=== PATIENT | male | born 1975 | race Hispanic/Latino ===

== ENCOUNTER 2017-06-30 11:18 | Observation (INO) | payer SELFPAY ==
[2017-06-30 12:23] LABS: #Basophils 0.1 thou/uL (0.0-0.2); #Eosinphils 0.5 thou/uL (0.0-0.7); #Lymphocytes 1.7 thou/uL (1.20-3.40); #Monocytes 0.4 thou/uL (0.11-0.59); #Neutrophils 3.4 thou/uL (1.40-6.50); %Eosinophils 8.1 % (0.0-10.0); %Lymphocytes 28.2 % (21.0-51.0); %Neutrophils 55.6 % (42.0-75.0); Mean Corpuscular HGB CONC 34.1 g/dL (32.0-36.0); Mean Corpuscular Hemoglobin 29.5 pg (27.0-31.0); Mean Corpuscular Volume 86.5 fl (80.0-94.0); Mean Platelet Volume 7.8 fL (7.4-10.4); Platelet Count 290 thou/uL (130-400); RBC Distribution Width 12.1 % (11.5-14.5); White Blood Cell (WBC) Count 6.1 thou/uL (4.8-10.8)
--- NOTE | 2017-06-30 12:52 | RAD ---
PORTABLE CHEST ONE VIEW: History: Chest pain Date: 06-30-17 Time: 12:22 p.m. FINDINGS: Comparison is made with exam of 8:13 a.m. from the same date. The heart size is borderline. No focal areas of consolidation, pneumothorax, or pleural effusions are seen. IMPRESSION: No radiographic evidence of acute cardiopulmonary process. POS: [facility]
[2017-06-30 12:53] LABS: ALT (SGPT) 23 U/L (8-55); AST (SGOT) 31 U/L (5-34); Albumin 4.3 g/dL (3.5-5.0); Alkaline Phosphatase 91 U/L (40-150); Anion Gap 10 mmol/L (10-20); BUN (Urea Nitrogen) 12 mg/dL (8.9-20.6); Bilirubin, Total 0.4 mg/dL (0.2-1.2); CKMB 1.7 ng/mL (0-6.6); Calc. Creatinine Clearance 0 mL/min (70-130); Calcium 9.4 mg/dL (7.8-10.44); Carbon Dioxide 26 mmol/L (22-29); Chloride 103 mmol/L (98-107); Estimated GFR-MDRD 88; Globulin 3.1 g/dL (2.4-3.5); Glucose 294 mg/dL (70-105); Potassium 3.9 mmol/L (3.5-5.1); Protein, Total 7.4 g/dL (6.0-8.3); Sodium 135 mmol/L (136-145); Troponin I Less than 0.010 ng/mL (< 0.028)
[2017-06-30] MEDS ORDERED: Nitroglycerin 2% Ointment 1 INCH/1 GM Packet ONE (13:36)
[2017-06-30] MEDS ORDERED: Metoprolol Tartrate 25 MG TAB ONE (13:46)
[2017-06-30] MEDS ORDERED: Acetaminophen 325 MG TAB ONE (14:35)
[2017-06-30 16:35] LABS: Troponin I Less than 0.010 ng/mL (< 0.028)
[2017-06-30] MEDS ORDERED: Ondansetron ODT 4 MG TAB SL PRN (16:43)
[2017-06-30] MEDS ORDERED: Ondansetron HCl/PF 4 MG/2 ML Vial IVP PRN ×2 (16:43→16:57)
[2017-06-30] MEDS ORDERED: Acetaminophen 325 MG TAB PO PRN (16:43)
[2017-06-30 16:48] VITALS: BMI 32.5
[2017-06-30] MEDS ORDERED: cloNIDine 0.1 MG TAB PO PRN (16:57)
[2017-06-30] MEDS ORDERED: Acetaminophen 500 MG TAB PO PRN (16:57)
[2017-06-30] MEDS ORDERED: Ondansetron ODT 4 MG TAB PO PRN (16:57)
[2017-06-30] MEDS ORDERED: hydrALAZINE 20 MG/ML VIAL SLOW IVP PRN (16:57)
[2017-06-30 18:49] LABS: Troponin I Less than 0.010 ng/mL (< 0.028)
[2017-06-30] MEDS ORDERED: Nitroglycerin 2% Ointment 1 INCH/1 GM Packet TOP SCH (20:00)
[2017-06-30] MEDS: Famotidine 20 MG TAB PO SCH (20:06)
[2017-06-30] MEDS: Metoprolol Tartrate 25 MG TAB PO SCH (20:07)
--- NOTE | 2017-06-30 20:10 | HP ---
DATE OF ADMISSION: 06/30/2017 PRIMARY CARE PROVIDER: Dr. Talon Clemons. CHIEF COMPLAINT: Elevated blood pressure and chest pain. HISTORY OF PRESENT ILLNESS: This is a 41-year-old male who presented initially to [facility] complaining of chest pain and elevated blood pressure with some left-sided facia l numbness. The patient states these initial symptoms began approximately 4 days prior to this evalu ation with similar onset of left facial numbness resolving spontaneously. The patient states he was recently evaluated in his primary care physician's office on 06/25/2017, for establishment of care an d to get new prescriptions for his regular chronic medications to include antihypertensives. The pat ient states that he has been off all of his chronic medications including his blood pressure medicine s since 01/2017 [place] the [place], [place] area. The miguel ent states he is attempting to establish with new primary care provider in the [facility] and this was his first visit on 06/25/2017. The patient states that he had noticed headaches with some left facial paresthesias, but no double vision, blurred vision, or unilateral weakness of the extremi ties. The patient denied any difficulty with speech, but became concerned when the similar symptoms returned on the day of this admission. The patient states a significant history of prior coronary ar nancy disease status post cardiac stent placement x2 approximately 10 years prior to this evaluation. The patient states he underwent stress testing after the stent placement, but has not had any signif icant follow up for cardiac care in approximately 10 years. The patient initially stated he had some chest pressure that rated the pain at 0/10. In the emergency room, the patient underwent general ev aluation with EKG showing T-wave inversion in the lateral leads. Due to the patient's blood pressure in the 170/110s, the patient was placed on nitroglycerin infusion and given Tylenol and transdermal nitro paste. The patient also received aspirin and was transferred to [facility] for further evaluation. The patient denied any specific recent trauma, inju ry, fever, chills, increased cough, congestion, or family members with similar symptoms. The patient does admit to starting a new job within the last 3 days prior to this evaluation. PAST MEDICAL HISTORY: 1. Hypertension, uncontrolled, off chronic medication since 01/2017. 2. Coronary artery disease, status post cardiac stent placement x2. 3. Hyperglycemia without formal diagnosis of diabetes mellitus. PAST SURGICAL HISTORY: Status post cardiac stent placement x2. CURRENT MEDICATIONS: Reviewed and negative. ALLERGIES: No known drug allergies. FAMILY HISTORY: Positive for coronary artery disease, hypertension, and diabetes mellitus. SOCIAL HISTORY: The patient is and resides in the [place], [place] area. Accompanied by his in the hospital. No current alcohol, tobacco or illicit drug use. Functional of all activities of daily living. REVIEW OF SYSTEMS: The following complete review of systems was negative, unless otherwise mentioned in the HPI or below: Constitutional: Weight loss or gain, ability to conduct usual activities. Skin: Rash, itching. Eyes: Double vision, pain. ENT/Mouth: Nose bleeding, neck stiffness, pain, tenderness. Cardiovascular: Palpitations, dyspnea on exertion, orthopnea. Respiratory: Shortness of breath, wheezing, cough, hemoptysis, fever or night sweats. Gastrointestinal: Poor appetite, abdominal pain, heartburn, nausea, vomiting, constipation, or diarrhea. Genitourinary: Urgency, frequency, dysuria, nocturia. Musculoskeletal: Pain, swelling. Neurologic/Psychiatric: Anxiety, depression. Allergy/Immunologic: Skin rash, bleeding tendency. PHYSICAL EXAMINATION: VITAL SIGNS: On admission, blood pressure in the emergency room 179/111, pulse 77, respiratory rate 18, temperature 97.9 degrees Fahrenheit, O2 saturation 96% on room air. GENERAL APPEARANCE: This is a 41-year-old male, alert and oriented x3, pleasant, conversant , smiling, in no acute distress. HEENT: Pupils are equal, round, and reactive to light and accommodation. Extraocular muscles are in tact. No scleral icterus, no conjunctival injection. Nares patent. OP is clear. Teeth in good rep air. No facial asymmetry appreciated. NECK: Supple, no cervical adenopathy, no thyromegaly, no carotid bruits, no JVD appreciated. Cervic al spine with full active and passive range of motion. No meningeal signs appreciated. CHEST: Lungs are clear to auscultation bilaterally. CARDIOVASCULAR: S1 and S2 without noted murmur. ABDOMEN: Rounded, soft, nontender, nondistended. Bowel sounds are positive in all four quadrants. There is no hepatosplenomegaly, no abdominal bruits, no rebound or guarding appreciated. EXTREMITIES: Warm and dry with fair turgor. No clubbing, cyanosis or asymmetric edema appreciated. Pulses palpable distally at the dorsalis pedis, posterior tibial, and popliteal arteries bilaterally . Capillary refill less than 2 seconds. NEUROLOGIC: Cranial nerves II-XII are grossly intact. No focal or lateralizing signs appreciated. PERTINENT LABORATORY AND X-RAY FINDINGS: Basic metabolic profile within normal limits. Glucose 294, AST 31, ALT 23, alkaline phosphatase 91, troponin I negative x2. BNP 11.4, albumin 4.3. CBC within normal limits. Portable chest x-ray dated 06/30/2017 showed no acute cardiopulmonary process. EKG dated 06/30/2017 by my interpretation shows sinus mechanism with heart rates in the 70s. Attenuated R waves noted in the precordial leads. T-wave inversion in leads V4 through V6. ASSESSMENT AND PLAN: 1. Hypertensive urgency. The patient will be observed on the telemetry unit. We will continue meto prolol 25 mg p.o. b.i.d. Add lisinopril 10 mg p.o. at bedtime. As needed, we will provide clonidine and hydralazine for systolic greater than or equal to 170. Check 2D transthoracic echocardiogram fo r wall motion abnormalities, ejection fraction and valvular function. 2. Question of chest pain. No current evidence to suggest acute coronary syndrome. Serial troponin s negative x2. We would recommend holding stress testing until blood pressure is more optimally aj ged. 3. Coronary artery disease status post cardiac stent placement x2. Stable currently. We will resum e aspirin 81 mg p.o. daily. 4. Start statin in the a.m. after a fasting lipid profile evaluated. Continue metoprolol 25 mg b.i. d. 5. Hyperglycemia. We will check A1c level in the a.m. given patient's strong family history of diab etes mellitus. Accu-Cheks a.c. and at bedtime. 6. Prophylaxis. Sequential compression devices while in bed. Pepcid 20 mg p.o. b.i.d. 7. Code status is FULL. Surrogate medical decision maker is patient's spouse.
[2017-06-30] MEDS ORDERED: Dextrose 50% Abboject 50 ML SYRINGE IVP PRN (20:55)
[2017-06-30] MEDS ORDERED: HumaLOG 300 UNITS/3 ML VIAL SC PRN ×2 (20:55)
[2017-06-30] MEDS ORDERED: Dextrose 5% in Water 1,000 ML IV PRN (20:55)
[2017-06-30] MEDS ORDERED: Lisinopril 10 MG TAB PO SCH (21:00)
[2017-06-30] MEDS ORDERED: Insulin Detemir 100 UNITS/ML 20 UNITS in Pre-Filled Syringe 1 EACH SC SCH (21:00)
[2017-07-01 04:47] LABS: Anion Gap 9 mmol/L (10-20); BUN (Urea Nitrogen) 15 mg/dL (8.9-20.6); Calc. Creatinine Clearance 107 mL/min (70-130); Calcium 9.4 mg/dL (7.8-10.44); Carbon Dioxide 29 mmol/L (22-29); Chloride 101 mmol/L (98-107); Cholesterol 215 mg/dl (< 200 Desired); Estimated GFR-MDRD 80; Glucose 367 mg/dL (70-105); HDL Cholesterol 36 mg/dL (>60 Neg Risk); LDL Cholesterol, Calculated 136 mg/dL; Potassium 3.8 mmol/L (3.5-5.1); Sodium 135 mmol/L (136-145); Triglycerides 214 mg/dL (Less than 150)
[2017-07-01 07:58] VITALS: BP 134/78
[2017-07-01 07:59] VITALS: TEMP 97.5
[2017-07-01] MEDS: Famotidine 20 MG TAB PO SCH (08:36)
[2017-07-01] MEDS: Metoprolol Tartrate 25 MG TAB PO SCH (08:37)
[2017-07-01] MEDS ORDERED: Aspirin 81 mg Enteric Coated Tablet PO SCH (09:00)
[2017-07-01] MEDS ORDERED: Aspirin 325 MG TAB PO SCH (09:00)
--- NOTE | 2017-07-01 10:11 | DIS ---
DATE OF ADMISSION: 06/30/2017 DATE OF DISCHARGE: 07/01/2017 DISCHARGE DIAGNOSES: 1. Hypertensive urgency, resolved. 2. Hypertension, uncontrolled. 3. Diabetes mellitus type 2, uncontrolled. 4. Coronary artery disease, chronic and stable. 5. Hyperlipidemia, uncontrolled. CONSULTATIONS: None. PERTINENT LAB AND X-RAY FINDINGS: Creatinine ranged between 0.94-1.02 with estimated GFR ranging bet ween 80-88. Hemoglobin A1c is 13.0, troponin I negative x3. BNP 11.4, total cholesterol 215, trigly cerides 214, HDL 36, LDL 136. CBC within normal limits. Portable chest x-ray dated 06/30/2017 showe d no acute cardiopulmonary process. A 2D transthoracic echocardiogram pending at the time of this dictation. HOSPITAL COURSE: Patient was observed on the telemetry unit after initially presenting with hyperten sive urgency and associated transient left facial paresthesia. The patient was noted with uncontroll ed hypertension and initiated on metoprolol and lisinopril with overall improvement of blood pressure trend and resolution of presenting symptoms. The patient was ruled out for an acute coronary syndro me with serial troponins negative x3. The patient also was noted with hyperglycemia with A1c evaluat ion showing a level of 13.0. The patient will be initiated on metformin and glipizide and will need additional titration of his diabetic regimen on an ongoing basis after discharge. The patient alysa henriquez remained clinically stable throughout the hospital course, receiving education regarding diabetes, hypertension, and coronary artery disease during his hospital course. The patient will need addition al reinforcement and ongoing guidance after discharge. Overall, the patient is stable and ready for discharge on 07/01/2017. DISCHARGE MEDICATIONS: 1. Metformin 1000 mg p.o. b.i.d. 2. Glipizide 5 mg p.o. daily. 3. Metoprolol 25 mg p.o. b.i.d. 4. Lisinopril 10 mg 1 tablet p.o. at bedtime. 5. Enteric coated aspirin 81 mg 1 tablet p.o. daily. FOLLOWUP: The patient will follow up with his primary care provider, Dr. Talon Clemons within 7 days of discharge. CONDITION ON DISCHARGE: Stable. ACTIVITY: Ad citlaly. DIET: Heart healthy and ADA. SPECIAL INSTRUCTIONS: A 2D transthoracic echocardiogram results 07/01/2017 CODE STATUS: FULL. DISPOSITION: Home 07/01/2017.
== END 2017-07-01 10:14 | disposition home or self-care (01) ==
LOC: ERS 11:18 → 2SW 13:55
PROVIDERS: ADMIT Family Medicine; ATTEND Family Medicine
DX: I16.0 Hypertensive urgency (principal); I10 Essential (primary) hypertension; E11.9 Type 2 diabetes mellitus without complications; I25.10 Atherosclerotic heart disease of native coronary artery without angina pectoris; E78.5 Hyperlipidemia, unspecified; Z79.84 Long term (current) use of oral hypoglycemic drugs; Z79.899 Other long term (current) drug therapy
CPT/HCPCS: 36415; 36416; 71045; 80048; 80061; 83036; 83880; 93005; 93306; 94760; G0378; J1815

== ENCOUNTER 2018-08-30 09:51 | Observation (INO) | payer OTHER ==
[2018-08-30 10:51] LABS: Troponin I Less than 0.010 ng/mL (< 0.028)
[2018-08-30] MEDS ORDERED: Nitroglycerin 0.4 MG TAB (25 Tab Bottle) PO PRN (12:21)
--- NOTE | 2018-08-30 13:27 | HP ---
PRIMARY CARE PROVIDER: Talon Clemons MD CHIEF COMPLAINT: Chest pain. HISTORY OF PRESENT ILLNESS: Mr. Burroughs is a pleasant 43-year-old gentleman, who was seen at [facility] on August 30, 2018. He reports that he has a history of coronary artery disease. He reports that he had two stents, which he received 13 years ago. Over the last year or so, he stopped taking his medications. He resumed his medications 3 weeks ago. He was hospitalized at this facility from June 30 to of this year for elevated blood pressure and chest pain. He reports that last night, he had retrosternal chest pain. He describes it as dull, 8/10 at its worst, on and off, no known aggravating factors. It resolved after he received nitrates at the emergency room. He woke up this morning and got ready to go to work and felt diaphoretic. He was feeling nauseous yesterday. Today, he also started having left hand numbness. He therefore presented to the emergency room. He currently denies any chest pain. REVIEW OF SYSTEMS: All other systems reviewed and found to be negative. PAST MEDICAL HISTORY: Hypertension, coronary artery disease, and diabetes mellitus type 2. PAST SURGICAL HISTORY: PCI with coronary stents. PSYCHIATRIC HISTORY: Depression. SOCIAL HISTORY: The patient chews tobacco. He reports occasional alcohol use. He denies recreational drug use. FAMILY HISTORY: No family history of malignancy. ALLERGIES: NO KNOWN DRUG ALLERGIES. CURRENT MEDICATIONS: 1. Lisinopril 40 mg daily. 2. Fluoxetine 20 mg daily. 3. Glipizide 5 mg daily. 4. Metoprolol tartrate 50 mg 2 times a day. PHYSICAL EXAMINATION: GENERAL: On examination, Mr. Burroughs is awake and alert, not in acute distress. VITAL SIGNS: Blood pressure is 169/102, pulse 58, respiratory rate 23, and oxygen saturation 98% on room air. He is afebrile. EYES: No scleral icterus. No conjunctival pallor. ENT: Moist mucosal membranes. No oropharyngeal erythema or exudates. NECK: Supple, nontender, trachea is midline. RESPIRATORY: Accessory muscles of breathing are not active. Chest wall movements are symmetric bilaterally. LUNGS: Clear to auscultation without wheeze, rhonchi, or crepitations. CARDIOVASCULAR: S1 and S2 are heard, regular. Peripheral pulses palpable. No carotid bruit. No pericardial rub. ABDOMEN: Soft, nontender. Bowel sounds heard. No hepatomegaly, no splenomegaly. NEUROLOGIC: Cranial nerves 2 through 12 intact. Deep tendon reflexes 2+. MUSCULOSKELETAL: Power is 5/5 in all 4 extremities. SKIN: No rashes or subcutaneous nodules. LYMPHATIC: No cervical lymphadenopathy. PSYCHIATRIC: Normal mood, normal affect. The patient is oriented to person, place, and time. LABORATORY DATA: Mr. Burroughs labs and investigations were reviewed. I reviewed his electrocardiogram, which shows normal sinus rhythm, lateral T-wave flattening/inversion. I also reviewed his chest x-ray, which does not show any pulmonary infiltrates. His troponin I is less than 0.010. He has an unremarkable CBC and electrolytes. Creatinine is normal. BNP is normal. LFTs are unremarkable. ASSESSMENT AND PLAN: Mr. Burroughs is a pleasant 43-year-old gentleman, who was seen at [facility] on August 30, 2018. His problem list includes: 1. Chest pain: Mr. Burroughs is presenting with chest pain. Given his significant cardiac history, he will be admitted to the hospital for acute coronary syndrome rule out. We will do a stress test and monitor him on telemetry. 2. Diabetes mellitus type 2: We will start Accu-Cheks and insulin sliding scale. 3. Hypertension: We will monitor vital signs and titrate antihypertensives as needed. 4. Depression: Stable, mild. Many thanks for allowing me to participate in your patient's care. Please feel free to contact me with any questions or concerns. LEVEL OF RISK: High. LEVEL OF COMPLEXITY: High. Job ID: [id number] [facility]
[2018-08-30 13:37] LABS: Troponin I Less than 0.010 ng/mL (< 0.028)
[2018-08-30 14:44] VITALS: BMI 31.6
[2018-08-30] MEDS ORDERED: Lorazepam 2 MG/ML VIAL ONE (15:37)
[2018-08-30 17:07] LABS: Troponin I Less than 0.010 ng/mL (< 0.028)
[2018-08-30] MEDS ORDERED: Dextrose 5% in Water 1,000 ML IV PRN (18:09)
[2018-08-30] MEDS ORDERED: Dextrose 50% Abboject 50 ML SYRINGE SLOW IVP PRN (18:09)
[2018-08-30] MEDS ORDERED: HumaLOG 300 UNITS/3 ML VIAL SC PRN (18:09)
[2018-08-30] MEDS ORDERED: Lorazepam 2 MG/ML VIAL SLOW IVP PRN (18:25)
[2018-08-30] MEDS ORDERED: Lisinopril 20 MG TAB PO SCH (21:00)
[2018-08-31] MEDS ORDERED: FLUoxetine HCl 20 MG CAP PO SCH ×2 (10:47→11:15)
--- NOTE | 2018-08-31 11:20 | NM ---
Radionuclide stress and rest myocardial perfusion scan with CT attenuation correction and SPECT imagi ng: Left ventricular wall motion and ejection fraction: HISTORY: Chest pain. FINDINGS: Adenosine protocol. There is heterogeneous uptake of radiotracer throughout the left ventricular myoc ardium. On the stress images, a moderate sized area of moderate to prominent decreased uptake involves the basilar to mid portions of the anterolateral wall. Perfusion rest images show normal upt leida of radiotracer at this location and elsewhere. No other areas of reversibility. QGS analysis of gated SPECT images shows global hypokinesis with some dyskinetic segment of the base of the anterolateral wall. Ejection fraction calculated at 50%. IMPRESSION: 1. Reversibility of the basilar to mid portion of the anterolateral wall in the distribution of the c ircumflex artery. Suggestive of ischemia. 2. Borderline ejection fraction of 50%. Transcribed Date/Time: 08/31/2018 11:40 AM
[2018-08-31 12:05] VITALS: BP 155/88; TEMP 98.2
--- NOTE | 2018-08-31 14:14 | PRG ---
DATE OF SERVICE: 08/31/2018 SUBJECTIVE: Mr. Burroughs is a pleasant 43-year-old male with past medical history significant for coronary artery disease, status post stent x2 about 12 years ago; diabetes mellitus; hypertension; hyperlipidemia, who presented to the hospital with complaints of chest discomfort that he described as squeezing, along with diaphoresis. The patient has been admitted for chest pain rule out. His troponin has remained negative. He has had no further chest discomfort since his admission. He denies nausea or vomiting. He denies any shortness of breath. OBJECTIVE: VITAL SIGNS: Blood pressure 155/88, pulse is 58, temperature is 98.2, O2 saturation 99% on room air. GENERAL: This is a well-appearing male, resting comfortably in bed, in no acute distress. HEENT: Head, atraumatic and normocephalic. Mucous membranes are moist. NECK: No carotid bruits. No obvious JVD. Trachea is midline. No lymphadenopathy. CV: S1 and S2. Regular rhythm, mildly bradycardic. No appreciable murmurs, rubs, or gallops. LUNGS: Regular respiratory rate and pattern. Clear to auscultation bilaterally. ABDOMEN: Positive bowel sounds. Soft, nontender. No organomegaly. EXTREMITIES: No edema. +2 DP pulses bilaterally. SKIN: Warm and dry. No rashes. NEUROLOGIC: The patient is alert and oriented x3. Cranial nerves 2 through 12 are intact. The patient is nonfocal. LABORATORY DATA: Troponin has been negative x2. BMP in lab work from transferring facility within normal limits. ASSESSMENT: 1. Chest pain consistent with angina in a patient with known coronary artery disease, acute coronary syndrome ruled out. 2. Abnormal myocardial perfusion imaging study which showed reversibility of the basilar to mid portion anterolateral wall in the distribution of the circumflex artery and borderline ejection fraction of 50%. 3. Coronary artery disease, status post stenting x2 approximately 12 years ago. 4. Previous myocardial infarction, unknown type, but per the patient, history does sound like he has had a previous ST-elevation myocardial infarction. 5. Hypertension. 6. Type 2 diabetes mellitus. 7. Hyperlipidemia. 8. Anxiety. PLAN: We will continue the patient's beta ced and lisinopril. Continue baby aspirin. We will consult Cardiology for consideration of left heart catheterization. The procedure has been explained to the patient including the risks and benefits. We will continue p.r.n. nitrates. Further recommendations based on hospital course. Plan discussed with Dr. Camilo who agrees with the above. Job ID: [id number]
[2018-08-31] MEDS ORDERED: Aspirin 81 mg Enteric Coated Tablet PO SCH (14:15)
--- NOTE | 2018-08-31 16:19 | CON ---
DATE OF CONSULTATION: 08/31/2018 REASON FOR CONSULTATION: Abnormal stress study and chest pain. HISTORY OF PRESENT ILLNESS: Mr. Burroughs is a very pleasant 43-year-old gentleman who has a previous history of CAD, status post stent placement in [place] 80 years ago. He recently presented with chest pain. He did have associated diaphoresis. His pain resolved. He underwent a noninvasive stress study that was felt to be positive for ischemia to the anterolateral wall. PAST MEDICAL HISTORY: CAD, hypertension, diabetes mellitus, and depression. SOCIAL HISTORY: Positive for tobacco use. Occasional alcohol use. ALLERGIES: NONE. HOME MEDICATIONS: Include lisinopril, fluoxetine, glipizide, and metoprolol. REVIEW OF SYMPTOMS: A 10-point review of systems is reviewed and as above, otherwise negative. PHYSICAL EXAMINATION: GENERAL: Patient is a pleasant male, who is in no acute distress. The patient appears their stated age. VITAL SIGNS: Blood pressure 142/91, pulse 89, temperature 97.8. NEUROLOGIC: The patient is alert and oriented x3 with no focal neurologic deficits. HEENT: Sclerae without icterus. Mouth has moist mucous membranes with normal pallor. NECK: No JVD. Carotid upstroke brisk. No bruits bilaterally. LUNGS: Clear to auscultation with unlabored respirations. BACK: No scoliosis or kyphosis. CARDIAC: Regular rate and rhythm with normal S1 and S2. No S3 or S4 noted. No significant rubs, murmurs, thrills, or gallops noted throughout the precordium. PMI is not displaced. There is no parasternal heave. ABDOMEN: Soft, nontender, nondistended. No peritoneal signs present. No hepatosplenomegaly. No abnormal striae. EXTREMITIES: 2+ femoral and 2+ dorsalis pedis pulses. No cyanosis, clubbing, or edema. SKIN: No gross abnormalities. PERTINENT LABORATORY DATA: CK troponin negative. EKG shows normal sinus rhythm, ST-T wave changes suggesting LVH. IMPRESSION: 1. Chest pain. 2. Abnormal stress test. 3. Coronary artery disease. 4. Status post stent placement. RECOMMENDATIONS: From a CV standpoint, I would recommend coronary angiography with possible PCI. I discussed the procedure in full details with Mr. Burroughs. Risks included, but not limited to the following: , stroke, AK, need for emergency surgery, loss of limb, bleeding, and infection, as well as a reaction to the dye causing kidney failure and needing long-term dialysis. I also discussed the risks of PCI to include all of the above including coronary dissection and perforation in addition to acute stent thrombosis and restenosis. All questions about the procedure were answered. At this point, he is not prepared to proceed with angiography. He states he has several issues. He is going to take care of at home. He states he was off all his medications prior to presentation to the hospital. Again, I encouraged angiography given his presentation. I did state there was risk of and recurrent AK. He therefore decided to proceed with medical treatment. We would therefore add aspirin, Plavix in addition to statin therapy and beta ced therapy. We will also consider low-dose Imdur. He states he will follow up with me in the next 1 to 2 weeks in the office. Otherwise, I have no further recommendations. Job ID: [id number]
[2018-08-31] MEDS ORDERED: Metoprolol Tartrate 50 MG TAB PO SCH (21:00)
[2018-08-31] MEDS ORDERED: Atorvastatin Calcium 20 MG TAB PO SCH (21:00)
--- NOTE | 2018-09-01 04:55 | DIS ---
DATE OF ADMISSION: 08/30/2018 DATE OF DISCHARGE: 08/31/2018 ALLERGIES: NO KNOWN DRUG ALLERGIES. CHIEF COMPLAINT: Chest pain. FINAL DIAGNOSES: 1. Chest pain consistent with angina in a patient with known coronary artery disease, acute coronary syndrome ruled out. 2. Abnormal myocardial perfusion imaging study which showed reversibility of the basilar to mid portion anterolateral wall in the distribution of the circumflex artery and borderline ejection fraction of 50%. 3. Coronary artery disease, status post stenting x2, approximately 12 years ago. 4. Previous myocardial infarction, unknown type, per the patient history does appear consistent with a previous ST-elevation myocardial infarction. 5. Hypertension. 6. Type 2 diabetes mellitus. 7. Hyperlipidemia. 8. Anxiety. LABORATORY RESULTS: White blood cell count 5.7, RBC 6.02, hemoglobin 16.5, hematocrit 51.4%, platelets 289. Sodium 140, potassium 4.3, chloride 102, carbon dioxide 28, anion gap 14, BUN 11, creatinine 0.92, GFR 89. Hemoglobin A1c 13%. Lactic acid 1.1. AST, ALT, and alkaline phosphatase are all within normal limits. Troponin was negative x3. BNP was 56. IMAGING RESULTS: Chest x-ray showed no acute findings. Myocardial perfusion imaging study showed reversibility of the basilar to mid portion of the anterolateral wall in the distribution of the circumflex artery suggestive of ischemia. Borderline ejection fraction of 50%. CONSULTATION: Dr. Escalante of Cardiology. VITAL SIGNS: Blood pressure 155/88, pulse 58, O2 saturation is 99% on room air, respirations are 18, the patient is afebrile, temperature 98.2. HOSPITAL COURSE: The patient is a 43-year-old gentleman with past medical history significant for previous [place] about 12 years ago, coronary artery disease, status post stenting x2, diabetes mellitus type 2, hypertension, and hyperlipidemia, who presented to the hospital with complaints of chest discomfort. He states that the chest discomfort began the night before his arrival to the hospital. He described the discomfort as a squeezing pain with associated diaphoresis as well as nausea. He denied any shortness of breath, dizziness, or palpitations. He continued to have some waxing and waning chest discomfort and continued to feel clammy, and so he presented to the ER for further workup and treatment. His EKG on arrival did show sinus rhythm with some ST depression consistent with ischemia in the lateral leads. He was admitted for ACS rule out. His serial troponin was negative. He did undergo nuclear stress test with findings as above. Dr. Escalante of Cardiology was consulted and did recommend left heart catheterization, which the patient refused at this time. The patient will be seen by Dr. Escalante in the outpatient setting in approximately 1 week's time for further workup and likely scheduling of left heart catheterization as an outpatient. The patient has ambulated around his room this morning without any chest discomfort. He denies any shortness of breath, dizzy, nausea, or vomiting. He ate breakfast without issue this morning. He has no complaints at this time. PHYSICAL EXAMINATION: GENERAL: This is a well-appearing, male, resting comfortably in bed, in no acute distress. HEENT: Head is atraumatic and normocephalic. Mucous membranes are moist. NECK: No carotid bruits. No obvious JVD. Trachea is midline. No lymphadenopathy. CV: S1 and S2. Regular rhythm, mildly bradycardic. No appreciable murmurs, rubs, or gallops. LUNGS: Regular respiratory rate and pattern. Clear to auscultation bilaterally. ABDOMEN: Positive bowel sounds. Soft and nontender. No organomegaly. EXTREMITIES: No edema. +2 DP pulses bilaterally. SKIN: Warm and dry. No rashes. No abrasions. NEUROLOGIC: The patient is alert and oriented x3. Cranial nerves II through XII are intact. The patient is nonfocal. CONDITION AT DISCHARGE: Stable. DISCHARGE MEDICATIONS: The patient will continue his home medications, which include, 1. Metoprolol 50 mg one tablet p.o. b.i.d. 2. Lisinopril 40 mg one tablet p.o. daily. 3. Glipizide 5 mg p.o. b.i.d. New medications will be aspirin 81 mg daily along with p.r.n. sublingual nitroglycerin for chest pain. The patient does take a statin medication, but is not entirely sure which one, but he will continue this medication as well. DISCHARGE DISPOSITION: Home. PLAN: The risks of declining left heart catheterization have been explained to the patient. He declines at this time and does wish to go home and follow up with Dr. Ecsalante as an outpatient. I have explained to him that if his symptoms return , he is to take a sublingual nitroglycerin, and if his symptoms do not resolve, he needs to return to the hospital. Regarding his diabetes, his A1c is highly elevated and he needs to continue to follow with his PCP, Dr. Clemons, in the outpatient setting for more aggressive blood glucose control. The care of this patient has been discussed with Dr. Camilo who agrees with the above. Job ID: [id number] MTDD
[2018-09-01] MEDS ORDERED: FLUoxetine HCl 20 MG CAP PO SCH (09:00)
[2018-09-01] MEDS ORDERED: Aspirin 81 mg Enteric Coated Tablet PO SCH (09:00)
== END 2018-08-31 14:54 | disposition home or self-care (01) ==
LOC: ERS 09:51 → 2SW 14:34
PROVIDERS: ADMIT Internal Medicine; ATTEND Internal Medicine
DX: R07.89 Other chest pain (principal); I25.10 Atherosclerotic heart disease of native coronary artery without angina pectoris; I25.2 Old myocardial infarction; I10 Essential (primary) hypertension; E11.9 Type 2 diabetes mellitus without complications; E78.5 Hyperlipidemia, unspecified; F41.9 Anxiety disorder, unspecified; F17.220 Nicotine dependence, chewing tobacco, uncomplicated; F32.9 Major depressive disorder, single episode, unspecified; Z79.84 Long term (current) use of oral hypoglycemic drugs; Z79.899 Other long term (current) drug therapy; Z95.5 Presence of coronary angioplasty implant and graft
CPT/HCPCS: 36415; 36416; 78452; 93005; 93017; 96374; 96376; A9500; G0378; J0153; J1644; J2060

== ENCOUNTER 2019-09-17 01:33 | Inpatient (IN) | payer SELFPAY ==
[2019-09-17] MEDS ORDERED: Ondansetron ODT 4 MG TAB PO PRN (02:08)
[2019-09-17] MEDS ORDERED: Nitroglycerin 0.4 MG TAB (25 Tab Bottle) PO PRN (02:08)
[2019-09-17] MEDS ORDERED: HYDROcodone/Acetaminophen 5/325 mg Tablet PO PRN ×2 (02:08)
[2019-09-17] MEDS ORDERED: Ondansetron PF 4 MG/2 ML Vial IVP PRN (02:08)
[2019-09-17] MEDS ORDERED: Acetaminophen 325 MG TAB PO PRN (02:08)
[2019-09-17] MEDS ORDERED: Acetaminophen 650 MG Suppository PR PRN (02:08)
[2019-09-17 02:44] LABS: Troponin I 0.018 ng/mL (< 0.028)
--- NOTE | 2019-09-17 02:44 | PDOC.HHP ---
Hospitalist HPI - History of Present Illness chest pain / L sided weakness History of Present Illness: Case of an 44y/o male with pmhx of cad stent x2 at age 32, htn, dmt2, depression and hypercholesterrolemia who comes to hospital due to chest pain and stroke like symptoms. patient refers he was on his usual state of health until today when while watching tv he started with diaphoresis, sob, palpitations, n/v, and chest pain 10/10 non radiating for which he called ems for assitance. upon arrival patient refered ems were unable to understand him becuase he had slur speech and his L arm was weak and numb, patient refers this lasted around 2hours before returing to normal Hospitalist ROS - Review of Systems All other systems reviewed; all pertinent +/- noted in HPI/Subj Hospitalist History - Past Medical History Cardiac: reports: CAD, HTN, Hyperlipidemia Endocrine: reports: Diabetes - Past Surgical History Past Surgical History: reports: no pertinent history - Family History Family History: reports: cardiac disorder, diabetes mellitus, hypertension - Social History Tobacco Type: snuff Alcohol: reports: Occassional Drugs: reports: none - Exam General Appearance: awake alert Eye: PERRL, anicteric sclera ENT: normocephalic atraumatic, no oropharyngeal lesions Neck: supple, symmetric, no JVD, no thyromegaly Heart: RRR, no murmur, no gallops, no rubs Respiratory: CTAB, no wheezes, no rales, no ronchi Gastrointestinal: soft, non-tender, non-distended Extremities: no cyanosis, no clubbing Skin: normal turgor, no lesions Neurological: cranial nerve grossly intact, normal sensation to touch Musculoskeletal: normal tone, normal strength, no muscle wasting Psychiatric: normal affect, normal behavior, A&O x 3 Hospitalist Results - EKG Interpretation EKG: EKG with ST depression and t wave inversions, Hospitalist H&P A/P - Problem (1) Chest pain Code(s): R07.9 - CHEST PAIN, UNSPECIFIED Status: Acute (2) TIA (transient ischemic attack) Code(s): G45.9 - TRANSIENT CEREBRAL ISCHEMIC ATTACK, UNSPECIFIED Status: Acute (3) Hypertension Code(s): I10 - ESSENTIAL (PRIMARY) HYPERTENSION Status: Acute (4) CAD (coronary artery disease) Code(s): I25.10 - ATHSCL HEART DISEASE OF COUNCIL CORONARY ARTERY W/O ANG PCTRS Status: Acute (5) Diabetes Code(s): E11.9 - TYPE 2 DIABETES MELLITUS WITHOUT COMPLICATIONS Status: Acute (6) Hypercholesterolemia Code(s): E78.00 - PURE HYPERCHOLESTEROLEMIA, UNSPECIFIED Status: Acute (7) Chewing tobacco nicotine dependence Code(s): F17.220 - NICOTINE DEPENDENCE, CHEWING TOBACCO, UNCOMPLICATED Status : Acute - Plan Plan: chest pain - pt with st depression changes, and t wave inversions, dr flores senior corporate strategy manager was called, will possibly taken pt tomorrow for [facility]. patient started on hep drip beta ced asa and statin. cxr ordered as well as 2d echo , initial troponin is negative, will run series to evaluated trend. will also send lipid panel and a1c to asses modifiable risk factors tia - patient with slur speech, difficulty swalling and L sided weakness for 2 hours, consistent with tia, patient is back to neurological self, will start secondary stroke prevention with statin and asa. will gibran 2decho carotid doppler and mri, neurologist was consulted. permissive hypertension for 24-48hrs dm - ss and accu checks, adjust as necessary htn - as per pt, difficult to control, will give permissive htn for 24-48hrs hypercholesterolemia - continue statin, now increasde to high intensity tabacco use - advised to quit
[2019-09-17] MEDS ORDERED: Dextrose 5% in Water 1,000 ML IV PRN (02:57)
[2019-09-17] MEDS ORDERED: HumaLOG 300 UNITS/3 ML VIAL SC PRN (02:57)
[2019-09-17] MEDS ORDERED: Dextrose 50% Abboject 50 ML SYRINGE SLOW IVP PRN (02:57)
[2019-09-17] MEDS ORDERED: Aspirin 325 MG TAB PO SCH (03:00)
[2019-09-17 05:51] LABS: Cardiac Risk 4.1 (Less than 4.5)
[2019-09-17] MEDS ORDERED: Nitroglycerin 2% Ointment 1 INCH/1 GM Packet TOP SCH (06:00)
[2019-09-17] MEDS ORDERED: Heparin 10,000 UNITS/ 10 ML VIAL SLOW IVP SCH (06:30)
[2019-09-17] MEDS ORDERED: Heparin 25,000 units/D5W 500 ML IV SCH (06:30)
--- NOTE | 2019-09-17 08:51 | CON ---
DATE OF CONSULTATION: 09/17/2019 REASON FOR CONSULTATION: Hypertensive emergency, chest pain. PRIMARY PROJECT MGR: Dr. Troy Escalante. HISTORY OF PRESENT ILLNESS: Mr. Burroughs is a 44-year-old gentleman with history of chest pain. He underwent hospitalization 1year ago with stress testing, revealing abnormal stress test, indicating ischemia. Dr. Escalante recommended cardiac catheterization, but the patient refused. The patient has been maintained on blood pressure medicines, but at some point he stopped taking medicine. Also he was on cholesterol medicine, but stopped taking medicine. He came to the emergency room last night in [address] with chest pain and severe hypertension. It was noted that the blood pressure was 177/126 on one recording, but another blood pressure was 230 systolic. There was one recorded 230/142, with pulse 116. The patient was given nitrates and fluid. The blood pressure came down and his chest pain resolved. He was transferred here for further evaluation. The patient also had transient inability to speak that symptom has resolved. The patient now wants to go home. The patient chews tobacco. The patient was prescribed to take medicines, but was not taking any medicine. Most recent blood pressure 183/117, pulse 78. SOCIAL HISTORY: As mentioned. REVIEW OF SYSTEMS: CONSTITUTIONAL: No significant weight gain or loss. VISION: No changes. HEARING: No changes. PULMONARY: No cough or wheezing. GASTROINTESTINAL: No nausea, vomiting, or diarrhea. SKIN: No rashes. PHYSICAL EXAMINATION: VITAL SIGNS: As mentioned, blood pressure is still high. LUNGS: Clear. CARDIAC: Normal S1, normal S2. NECK: Veins are normal. Carotids, normal upstrokes. ABDOMEN: Soft and nontender. EXTREMITIES: Warm and dry. No clubbing. No cyanosis. No edema. PERTINENT LABORATORY DATA: LDL cholesterol is 143. Troponin 0.020. EKG, likely LVH with repolarization changes, there is a Q-wave in lead III that was present on previous EKG. This patient has T-wave inversions in anterolateral leads. ASSESSMENT: 1. Hypertensive emergency with still very high blood pressure. 2. Transient ischemic attack. 3. Chest pain, likely related to underlying coronary artery disease as well as uncontrolled hypertension. 4. Noncompliance. 5. Tobacco dependence. PLAN: 1. Continue beta blockers, increase dose. 2. Change from heparin to Lovenox. 3. Continue aspirin. 4. Continue statin. 5. Amlodipine and beta blockers. The patient states he was going to leave. Strongly advised to not to leave. The patient is at high risk of adverse outcome including strokes if he leaves with this uncontrolled hypertension, also at risk of myocardial infarction and . If the patient stays until tomorrow, Dr. Escalante will be seeing him in the hospital. Otherwise, he should follow up with Dr. Escalante in the office. Follow up with Dr. Escalante in the office. Job ID: [id number]
[2019-09-17 08:58] LABS: Troponin I 0.034 ng/mL (< 0.028)
[2019-09-17] MEDS ORDERED: Enoxaparin Sodium 60 MG/0.6 ML SYRINGE SC SCH ×2 (09:00)
[2019-09-17] MEDS ORDERED: FLUoxetine HCl 20 MG CAP PO SCH (09:00)
[2019-09-17] MEDS ORDERED: Metoprolol Tartrate 25 MG TAB PO SCH ×2 (09:00)
[2019-09-17] MEDS ORDERED: Aspirin 325 mg Enteric Coated Tablet PO SCH (09:00)
[2019-09-17] MEDS ORDERED: Amlodipine 10 MG TAB PO SCH (09:00)
--- NOTE | 2019-09-17 09:12 | RAD ---
PORTABLE CHEST: DATE: 09/17/2019. PROVIDED CLINICAL HISTORY: Chest pain. FINDINGS: Comparison is made with the study dated 08/30/2018. Cardiac and mediastinal silhouette is within norm al limits. Lungs appear clear. No pleural fluid or pneumothorax apparent. IMPRESSION: No evidence for an acute cardiopulmonary process. POS: ALBARO
[2019-09-17] MEDS ORDERED: Lorazepam 1 MG TAB PO PRN ×2 (09:41→09:42)
--- NOTE | 2019-09-17 10:11 | ULT ---
CAROTID DOPPLER: DATE: 09/17/2019. PROVIDED CLINICAL HISTORY: TIA. FINDINGS: Carrera scale and color Doppler sonography with spectral analysis was performed of the extracranial tovar tid system bilaterally. Atherosclerotic plaque involves right greater than left internal carotid art eries. There is no evidence for a hemodynamically significant internal carotid artery stenosis by pe ak systolic velocity or ratio criteria. IMPRESSION: No sonographic evidence for a hemodynamically significant internal carotid artery stenosis. POS: ALBARO
[2019-09-17 11:30] VITALS: BP 177/100; TEMP 98.1
--- NOTE | 2019-09-17 14:58 | PDOC.EVN ---
Event Note - Event Note Event Note: Despite explaining diagnoses, risks and benefits of treatment and nontreatment, ru decided to leave AMA. Conisdeirng previous positive stress test, TIA, and CKD, discharged patient on lisinopril (home regimen), metoprolol, amlodipine , and atorvastatin 80mg. Aspiring 324mg for 20 more days then can revert to 81mg. Patient was requested to see PCP within 3 days.
[2019-09-17] MEDS ORDERED: Lisinopril 20 MG TAB PO SCH (15:00)
--- NOTE | 2019-09-17 15:19 | CON ---
DATE OF CONSULTATION: 09/17/2019 CONSULTING SERVICE: Neurology. REASON FOR CONSULTATION: Episode of left-sided weakness. HISTORY OF PRESENT ILLNESS: Mr. Burroughs is a 44-year-old male with medical history significant for coronary artery disease, stent x2 at age 32, hypertension, diabetes, depression, presented to the hospital with an episode of chest pain and stroke-like symptoms. Per the patient, he was in usual state of health until 09/17/2019 when he was watching TV and all of a sudden he had shortness of breath, diaphoresis, palpitations, nausea, vomiting. He describes the pain as 10/10, not radiating. He called EMS, and at that time, he also had a slurred speech and felt weakness in his left arm with numbness, which lasted for about 2 hours and then resolved on its own. The patient denies headache, vertigo, dizziness, loss of vision or loss of consciousness during this episode. REVIEW OF SYSTEMS: All 14 systems were reviewed and all pertinent positives were mentioned in the HPI. PAST MEDICAL HISTORY: Diabetes, hypertension, coronary artery disease, and hyperlipidemia. PAST SURGICAL HISTORY: Status post stent x2 at age 32. FAMILY HISTORY: Coronary artery disease, diabetes mellitus, and hypertension. SOCIAL HISTORY: Denies alcohol or illegal drug use. Drinks occasionally. MEDICATIONS: Amlodipine, fluoxetine, aspirin, lipitor and nitroglycerin ALLERGIES: Codeine, acetaminophen PHYSICAL EXAMINATION: 146/90 88 18 CVS: Regular rate and rhythm. CHEST: Clear. ABDOMEN: Soft. NEUROLOGICAL: Mental status; the patient is alert and orient to person, place, and time. Motor muscle tone and bulk are normal. Strength 5/5 bilaterally. Cranial nerves 2 through 12 intact. Sensory, intact to all sensory modalities. Cerebellar, [id number] testing intact. Gait not tested due to the patient's safety reasons. DATA REVIEWED: Labs were essentially unremarkable. EKG shows ST depression and T-wave inversion. ASSESSMENT AND PLAN: Mr. Tye Burroughs is consulted for an episode of left- sided weakness with slurred speech and difficulty swallowing, which lasted for 2 hours , most likely transient ischemic attack. Head CT reviewed, which was negative for acute intracranial pathology. Echocardiogram was essentially unremarkable. Continue neuro checks every 4 hours. Continue aspirin and statin for secondary stroke prevention. Permissive control of blood pressure for the next 24 hours, PT/OT/speech. We will continue to follow. Thank you for the consult. Job ID: [id number] [email or web address]
[2019-09-17] MEDS ORDERED: Atorvastatin Calcium 40 MG TAB PO SCH (21:00)
== END 2019-09-17 15:48 | disposition left against medical advice (07) | DRG 69 ==
LOC: ERS 01:33 → 2SE 02:11
PROVIDERS: ADMIT Internal Medicine; ATTEND Internal Medicine
DX: G45.9 Transient cerebral ischemic attack, unspecified (principal); I16.1 Hypertensive emergency; I25.110 Atherosclerotic heart disease of native coronary artery with unstable angina pectoris; F32.9 Major depressive disorder, single episode, unspecified; E78.5 Hyperlipidemia, unspecified; N18.9 Chronic kidney disease, unspecified; I12.9 Hypertensive chronic kidney disease with stage 1 through stage 4 chronic kidney disease, or unspecified chronic kidney disease; E78.00 Pure hypercholesterolemia, unspecified; E11.22 Type 2 diabetes mellitus with diabetic chronic kidney disease; F17.220 Nicotine dependence, chewing tobacco, uncomplicated; Z91.19 Patient's noncompliance with other medical treatment and regimen; Z95.5 Presence of coronary angioplasty implant and graft; Z79.899 Other long term (current) drug therapy; Z79.82 Long term (current) use of aspirin; Z88.6 Allergy status to analgesic agent; Z88.5 Allergy status to narcotic agent; Z28.21 Immunization not carried out because of patient refusal
CPT/HCPCS: 36415; 36416; 71045; 80061; 83036; 84484; 85730; 93005; 93306; 93880; 94760; J1644; J1650

== ENCOUNTER 2019-09-17 17:26 | Inpatient (IN) | payer SELFPAY ==
[2019-09-17] MEDS ORDERED: Aspirin Chewable 81 MG TAB ONE (17:56)
[2019-09-17] MEDS ORDERED: Nitroglycerin 2% Ointment 1 INCH/1 GM Packet ONE (17:56)
[2019-09-17 18:03] LABS: #Basophils 0.1 thou/uL (0.0-0.2); #Eosinphils 0.1 thou/uL (0.0-0.7); #Lymphocytes 2.2 thou/uL (1.20-3.40); #Monocytes 0.6 thou/uL (0.11-0.59); #Neutrophils 4.5 thou/uL (1.40-6.50); %Basophils 0.9 % (0.0-1.0); %Eosinophils 1.2 % (0.0-10.0); %Lymphocytes 29.4 % (21.0-51.0); %Monocytes 8.3 % (0.0-10.0); %Neutrophils 60.2 % (42.0-75.0); Hemoglobin 16.6 g/dL (14.0-18.0); Mean Corpuscular Hemoglobin 30.8 pg (27.0-31.0); Mean Corpuscular Volume 90.5 fL (78.0-98.0); Mean Platelet Volume 7.8 fL (7.4-10.4); Platelet Count 332 thou/uL (130-400); RBC Distribution Width 12.7 % (11.5-14.5); Red Blood Cell (RBC) Count 5.39 mill/uL (4.70-6.10); White Blood Cell (WBC) Count 7.5 thou/uL (4.8-10.8)
[2019-09-17] MEDS ORDERED: Ondansetron PF 4 MG/2 ML Vial ONE (18:11)
[2019-09-17 18:19] LABS: Bilirubin Negative (Negative); Blood, Urine Negative (Negative); Clarity Clear (Clear); Glucose, Urine (Dipstick) Greater than 1000 mg/dL (Negative); Leukocyte Negative Leu/uL (Negative); Nitrite Negative (Negative); Protein, Urine (Dipstick) Negative (Neg-Trace)
[2019-09-17 18:22] LABS: ALT (SGPT) 17 U/L (8-55); AST (SGOT) 14 U/L (5-34); Acetaminophen Less than 6.0 mcg/mL (10.0-30.0); Albumin 4.6 g/dL (3.5-5.0); Alcohol Less than 10 mg/dL (Less than 10); Alkaline Phosphatase 60 U/L (40-110); Anion Gap 13 mmol/L (10-20); BUN (Urea Nitrogen) 12 mg/dL (8.9-20.6); Bilirubin, Total 0.6 mg/dL (0.2-1.2); CK (CPK) 42 U/L (30-200); Calc. Creatinine Clearance 0 mL/min (70-130); Calcium 9.4 mg/dL (7.8-10.44); Carbon Dioxide 25 mmol/L (22-29); Chloride 100 mmol/L (98-107); Estimated GFR-MDRD 80; Globulin 2.8 g/dL (2.4-3.5); Glucose 310 mg/dL (70-105); Potassium 4.1 mmol/L (3.5-5.1); Protein, Total 7.4 g/dL (6.0-8.3); Salicylate Less than 8.0 mg/dL (15.0-30.0); Sodium 134 mmol/L (136-145)
--- NOTE | 2019-09-17 18:22 | RAD ---
Chest one view HISTORY: Chest pain. COMPARISON: 08/30/2018. FINDINGS: The cardiac silhouette and pulmonary vasculature are unremarkable. Mediastinum is midline. No confluent airspace consolidation or evidence of pneumothorax. IMPRESSION : No abnormalities are demonstrated.
--- NOTE | 2019-09-17 18:43 | CT ---
CT head noncontrast HISTORY: Altered mental status. Weakness. COMPARISON: 09/16/2019. FINDINGS: There is no evidence of acute intracranial hemorrhage. The lobular area of ill-defined decr eased density within the peripheral aspect of the right temporal lobe, extending through the cortical stone matter, measures up to 3.6 cm length by 2.7 cm depth on the current study. Similar in a ppearance to the prior study. Effacement of the associated cerebral sulci. Similar appearing but slightly smaller area of abnormality within the right frontal lobe just above t he Sylvian fissure is also unchanged. It measures up to 2.0 cm greatest diameter on the current study. Linear area of decreased density within the anterior aspect of the right basal ganglia is also unchan ged. No new areas of encephalomalacia are evident. Septum pellucidum is midline. Ventricles are unremarkable. Visualized paranasal sinuses remain well aerated. IMPRESSION : Right temporal lobe abnormalities, favored to represent areas of evolving infarct, are unchanged. Naima ntual follow-up with MRI would be appropriate for documentation of the cause.
[2019-09-17 21:07] VITALS: BMI 29.9
[2019-09-17] MEDS ORDERED: Senokot S 8.6-50 MG TAB PO PRN (21:20)
[2019-09-17] MEDS ORDERED: Dextrose 5% in Water 1,000 ML IV PRN (21:23)
[2019-09-17] MEDS ORDERED: Dextrose 50% Abboject 50 ML SYRINGE SLOW IVP PRN (21:23)
[2019-09-17 21:39] LABS: Troponin I 0.014 ng/mL (< 0.028)
[2019-09-17] MEDS ORDERED: Enoxaparin Sodium 80 MG/0.8 ML SYRINGE SC SCH (21:45)
[2019-09-17 23:04] LABS: Amphetamine Not Detected (NotDetected); Barbiturates Screen Not Detected (NotDetected); Benzodiazepine Screen Not Detected (NotDetected); Cocaine Metabolite Screen Not Detected (NotDetected); Medtox Control Line Valid? VALID (VALID); Medtox Reader # READER 4; Methadone Not Detected (NotDetected); Methamphetamine Not Detected (NotDetected); Opiate Screen Not Detected (NotDetected); Oxycodone Screen Not Detected (NotDetected); Phencyclidine (PCP) Not Detected (NotDetected); THC/Cannabinoid Screen Not Detected (NotDetected); Tricyclic Screen Not Detected (NotDetected)
[2019-09-17] MEDS ORDERED: Melatonin 3 MG TAB PO PRN (23:56)
--- NOTE | 2019-09-17 23:56 | HP ---
PRIMARY CARE PHYSICIAN: Dr. Clemons. CHIEF COMPLAINT: TIAs, left-sided weakness, which is intermittent. HISTORY OF PRESENT ILLNESS: Mr. Burroughs is a 44-year-old man with a past medical history pertinent for coronary artery disease post stents x2 at the age of 32, also has hypertension, diabetes type 2, depression, and hypercholesteremia, who comes to the hospital due to chest pain and stroke-like symptoms. The patient refers that he was at his usual state of health earlier today when he is watching TV and started to have some diaphoresis, shortness of breath, palpitations, nausea, vomiting, and chest pain 10/, which was nonradiating and he called EMS for assistance. The patient reports that he was coming to [facility], but EMS noticed that he had had a left-sided droop and that his speech became some dysarthric, so he was taken to [place] ER for evaluation. He was then sent here for admission. He was admitted early this morning. He had had several episodes of this left-sided weakness, drooping on the left side, dysarthria. While in [place] ED he had some ST depression and T-wave inversions. They consulted Dr. Martinez, who is on-call, asked for him to be admitted and that he would see him in the morning and asked for him to be on a heparin drip, which was started. The patient had an echocardiogram, which showed an EF of 55 to 60% No significant stenosis or regurgitation. He also had a consultation by a neurologist, who wanted to continue with the neuro checks, continue aspirin and statin. PT, OT, Speech , MRI pending. Dr. Martinez also saw him this morning, who increased his beta blockers, changed heparin to Lovenox, suggested we continue the aspirin and the statin, was worried about his hypertension and wanted him to stay in the hospital and let Dr. Escalante see him in the hospital. At that time, Mr. Burroughs was talking about leaving AMA, which he eventually did later that afternoon and he was strongly advised not to do that by Dr. Martinez and Dr. Barraza. The patient left and then he came back into the emergency room several hours later and this is that admission HPI. When he left here, he and his girlfriend went to [place]. He said he did fine. He walked around and then when he went to check out, he said he felt very diaphoretic, did not feel well. He said his girlfriend noticed that he had had a total change in demeanor. He said he felt terrible. He stated that he felt very nauseous, dizzy, lightheaded and had some continued chest pain and it brought him back to the emergency room. During the evaluation in the ER today, he denied any focal numbness or weakness. Left hand and forearm feels tight. He denied any fever or shortness of breath, had not vomited. While he was in the emergency room, the ER physician was alerted by the nurse that he began to vomit and after that he had some difficulty speaking. He was able to answer simple questions, but had a left- sided droop and frequent coughing episodes and coughing up a small amount of watery secretion and then developed left-sided weakness and difficulty opening his left hand and after this, he was sent to the CT scan for a repeat brain CT. The ER physician stated that when he came back from getting the CT, all of the symptoms had resolved. The repeat CT today showed right temporal lobe abnormalities, likely represent areas of evolving infarct and these remain unchanged. Follow up with MRI would be appropriate for documentation of the cause. Lab work today was largely unremarkable. He had a sodium of 134. Glucose is elevated at 310. Troponin x2 undetectable. Urine was also unremarkable. The patient will be re-admitted to the Stroke Unit to continue his evaluation and have Dr. Escalante see him tomorrow while he is hospitalized. The patient was amenable to staying. He stated that he really was not sure what was going on, but stated that he would allow us to continue the workup and to talk to Cardiology tomorrow and also get the brain MRI. REVIEW OF SYSTEMS: All systems are reviewed. Pertinent positive and negative noted in the HPI. PAST MEDICAL HISTORY: Pertinent for CAD, hypertension, hyperlipidemia, and diabetes. PAST SURGICAL HISTORY: He has had 2 cardiac stents. FAMILY HISTORY: Cardiac disorder, diabetes, and hypertension. SOCIAL HISTORY: Dips tobacco. Occasional alcohol. Denies any drug use. PHYSICAL EXAMINATION: GENERAL: The patient is alert and oriented, in no acute distress. EYES: Pupils are equally round and reactive to light. Enteric sclerae. ENT: Mouth exam is normal. Mucous membranes are moist. NECK: Supple. No JVD. Full range of motion. HEART: Regular heart sounds. Normal rate and rhythm. RESPIRATORY: Clear to auscultation. No wheezes. Chest expansion is equal. GI: Soft, nontender. EXTREMITIES: Normal range of motion. Motor strength is normal. Pulses are normal. SKIN: Normal turgor, warm, dry, normal in color. NEURO: Cranial nerves are grossly intact. Normal sensation to touch. Speech is normal. No focal deficits are noted. MUSCULOSKELETAL: Normal tone. Normal strength. No muscle wasting. PSYCH: He has normal affect. Normal behavior. He is alert and oriented x3. ASSESSMENT AND PLAN: 1. Chest pain and the ST depression changes that they saw on the original admission. We will continue the Lovenox as ordered by Dr. Martinez this am. Dr. Martinez increased his beta ced, which we will continue. He will be on aspirin and statin, amlodipine for blood pressure and trend his troponins. Cardiology will have to called again in AM. 2. For his transient ischemic attack, we will have PT/OT evaluate him. The patient states that he did not get that today. We have ordered a brain MRI, no contrast. We have ordered some Ativan on-call and ask for Neurology to continue to see. 3. Diabetes. Sliding scale and Accu-Cheks a.c. at bedtime. 4. Hypertension: started on beta ced and amlodipine. 5. Hypercholesterolemia. We have continued statin. 6. Tobacco use, we have advised him to quit. 7. Gastrointestinal prophylaxis started. The patient was started back on the Lovenox which will help against DVT formation. 8. Case discussed with Dr. Carson, who admitted him earlier today, agrees with plan. 9. Hospital course is dependent on clinical findings. Job ID: [id number] [facility]
[2019-09-17] MEDS ORDERED: Ondansetron PF 4 MG/2 ML Vial IVP PRN (23:57)
[2019-09-18 00:15] LABS: Troponin I 0.016 ng/mL (< 0.028)
[2019-09-18] MEDS: Acetaminophen 325 MG TAB PO PRN ×2 (00:21→17:17)
[2019-09-18] MEDS: HumaLOG 300 UNITS/3 ML VIAL SC PRN ×5 (02:12→20:57)
[2019-09-18] MEDS ORDERED: Sodium Chloride 0.9% 1,000 ML IV SCH (02:15)
[2019-09-18 05:47] LABS: Hemoglobin 15.6 g/dL (14.0-18.0); Red Blood Cell (RBC) Count 5.13 mill/uL (4.70-6.10); White Blood Cell (WBC) Count 7.3 thou/uL (4.8-10.8)
[2019-09-18 05:48] LABS: #Lymphocytes 1.7 thou/uL (1.20-3.40); #Monocytes 0.5 thou/uL (0.11-0.59); %Basophils 0.6 % (0.0-1.0); %Eosinophils 0.5 % (0.0-10.0); %Lymphocytes 23.6 % (21.0-51.0); %Monocytes 6.9 % (0.0-10.0); %Neutrophils 68.4 % (42.0-75.0); Mean Corpuscular HGB CONC 33.6 g/dL (32.0-36.0); Mean Corpuscular Hemoglobin 30.3 pg (27.0-31.0); Mean Corpuscular Volume 90.4 fL (78.0-98.0); Mean Platelet Volume 7.6 fL (7.4-10.4); Platelet Count 318 thou/uL (130-400); RBC Distribution Width 12.7 % (11.5-14.5)
[2019-09-18 06:22] LABS: ALT (SGPT) 13 U/L (8-55); AST (SGOT) 11 U/L (5-34); Albumin 4.1 g/dL (3.5-5.0); Alkaline Phosphatase 53 U/L (40-110); Anion Gap 12 mmol/L (10-20); BUN (Urea Nitrogen) 10 mg/dL (8.9-20.6); Bilirubin, Total 0.4 mg/dL (0.2-1.2); Calc. Creatinine Clearance 94 mL/min (70-130); Calcium 9.1 mg/dL (7.8-10.44); Carbon Dioxide 24 mmol/L (22-29); Chloride 102 mmol/L (98-107); Estimated GFR-MDRD 74; Glucose 259 mg/dL (70-105); Potassium 4.1 mmol/L (3.5-5.1); Protein, Total 7.1 g/dL (6.0-8.3); Sodium 134 mmol/L (136-145)
[2019-09-18] MEDS ORDERED: Lorazepam 2 MG/ML VIAL SLOW IVP PRN (07:00)
[2019-09-18] MEDS ORDERED: Loratadine 10 MG TAB PO PRN (07:54)
[2019-09-18] MEDS ORDERED: Bisacodyl 5 MG TAB PO PRN (07:54)
[2019-09-18] MEDS ORDERED: Diabetic Tussin 200 MG/10 ML UDCUP PO PRN (07:54)
[2019-09-18] MEDS ORDERED: Cepastat Lozenges 1 LOZ PO PRN (07:54)
[2019-09-18] MEDS ORDERED: hydrALAZINE 20 MG/ML VIAL SLOW IVP PRN (07:54)
[2019-09-18] MEDS ORDERED: Zolpidem Tartrate 5 MG TAB PO PRN (07:54)
[2019-09-18] MEDS ORDERED: Ondansetron ODT 4 MG TAB PO PRN (07:54)
[2019-09-18] MEDS ORDERED: Loperamide HCl 2 MG CAP PO PRN (07:54)
[2019-09-18] MEDS ORDERED: Calcium Carbonate 500 MG ChewTAB PO PRN (07:54)
[2019-09-18] MEDS ORDERED: Sodium Chloride 0.65% Nasal 44 ML BOT EA NARE PRN (07:54)
[2019-09-18] MEDS: Lisinopril 20 MG TAB PO SCH (08:37)
[2019-09-18] MEDS: Aspirin 325 mg Enteric Coated Tablet PO SCH (08:37)
[2019-09-18] MEDS: Amlodipine 10 MG TAB PO SCH (08:37)
[2019-09-18] MEDS: Famotidine 20 MG TAB PO SCH ×2 (08:37→20:55)
[2019-09-18] MEDS: Metoprolol Tartrate 25 MG TAB PO SCH ×2 (08:37→20:55)
[2019-09-18] MEDS: Enoxaparin Sodium 80 MG/0.8 ML SYRINGE SC SCH ×2 (08:37→20:56)
[2019-09-18] MEDS: FLUoxetine HCl 20 MG CAP PO SCH (08:37)
[2019-09-18] MEDS ORDERED: FLUoxetine HCl 20 MG CAP PO SCH (09:00)
[2019-09-18 09:44] LABS: Hemoglobin A1c 13.1 % (4.0-6.0)
--- NOTE | 2019-09-18 10:22 | PDOC.HOSPP ---
- Subjective Encounter Date: 09/18/19 Encounter Time: 09:30 Subjective: Patient seen and examined. No new complaints. No overnight events - Objective Vital Signs & Weight: Vital Signs (12 hours) Temp Pulse Resp BP BP Pulse Ox 09/18/19 08:37 67 09/18/19 08:00 98.5 F 95 18 169/109 H 98 09/18/19 04:20 97.9 F 67 18 154/89 H 98 09/18/19 01:50 98.5 F 84 20 121/73 95 09/17/19 22:39 96 Weight Weight 169 lb 6.4 oz I&O: 09/17/19 09/18/19 09/19/19 06:59 06:59 06:59 Intake Total 1420 Balance 1420 Result Diagrams: 09/18/19 05:32 09/18/19 05:32 Additional Labs: Accuchecks 09/18/19 09/18/19 09/18/19 05:41 04:22 02:06 POC Glucose 227 H 284 H 407 H Radiology Reviewed by me: Yes EKG Reviewed by me: Yes Hospitalist ROS - Review of Systems ENT: denies: ear pain, ear discharge, nose pain, nose discharge, nose congestion , mouth pain, mouth swelling, throat pain, throat swelling, other Respiratory: denies: cough, dry, shortness of breath, hemoptysis, SOB with excertion, pleuritic pain, sputum, wheezing, other Cardiovascular: denies: chest pain, palpitations, orthopnea, paroxysmal noc. dyspnea, edema, light headedness, other Gastrointestinal: denies: nausea, vomiting, abdominal pain, diarrhea, constipation, melena, hematochezia, other Genitourinary: denies: dysuria, frequency, incontinence, hematuria, retention, other Musculoskeletal: denies: neck pain, shoulder pain, arm pain, back pain, hand pain, leg pain, foot pain, other Skin: denies: rash, lesions, cami, bruising, other - Medication Medications: Active Medications Generic Name Dose Route Start Last Admin Trade Name Freq PRN Reason Stop Dose Admin Acetaminophen 650 mg 09/17/19 23:57 09/18/19 00:21 Tylenol PO 650 mg Q6H PRN Administration Headache, Aches or Pain Amlodipine Besylate 10 mg 09/18/19 09:00 09/18/19 08:37 Norvasc PO 10 mg DAILY [facility] Administration Aspirin 325 mg 09/18/19 09:00 09/18/19 08:37 Ecotrin PO 325 mg DAILY [facility] Administration Enoxaparin Sodium 80 mg 09/18/19 09:00 09/18/19 08:37 Lovenox SC 80 mg 0900,2100 [facility] Administration Famotidine 20 mg 09/18/19 09:00 09/18/19 08:37 Pepcid PO 20 mg BID [facility] Administration Fluoxetine HCl 40 mg 09/18/19 09:00 09/18/19 08:37 Prozac PO 40 mg DAILY [facility] Administration Insulin Human Lispro 0 units 09/17/19 21:23 09/18/19 06:04 Humalog SC 3 unit .MILD SLIDING SCALE PRN Administration Mild Correctional Scale Insulin Human Lispro 0 units 09/17/19 21:23 09/18/19 02:12 Humalog SC 5 unit .BEDTIME SLIDING SC PRN Administration Bedtime Correctional Scale Lisinopril 40 mg 09/18/19 09:00 09/18/19 08:37 Zestril PO 40 mg DAILY [facility] Administration Metoprolol Tartrate 25 mg 09/18/19 09:00 09/18/19 08:37 Lopressor PO 25 mg BID [facility] Administration Ondansetron HCl 4 mg 09/17/19 23:57 09/18/19 00:21 Zofran IVP 4 mg Q6H PRN Administration Nausea/Vomiting - Exam General Appearance: NAD, awake alert Eye: PERRL, anicteric sclera ENT: normocephalic atraumatic, no oropharyngeal lesions Neck: supple, symmetric, no JVD, no thyromegaly Heart: RRR, no murmur, no gallops, no rubs Respiratory: CTAB, no wheezes, no rales, no ronchi Gastrointestinal: soft, non-tender, non-distended, normal bowel sounds Extremities: no cyanosis, no clubbing, no edema Skin: normal turgor, no lesions Neurological: cranial nerve grossly intact, no focal deficits Musculoskeletal: normal tone, normal strength Psychiatric: normal affect, normal behavior Hosp A/P (1) TIA (transient ischemic attack) Code(s): G45.9 - TRANSIENT CEREBRAL ISCHEMIC ATTACK, UNSPECIFIED Status: Acute (2) Chest pain Code(s): R07.9 - CHEST PAIN, UNSPECIFIED Status: Acute Qualifiers: Chest pain type: unspecified Qualified Code(s): R07.9 - Chest pain, unspecified (3) Obesity (BMI 30.0-34.9) Code(s): E66.9 - OBESITY, UNSPECIFIED Status: Chronic (4) CAD (coronary artery disease) Code(s): I25.10 - ATHSCL HEART DISEASE OF [place] CORONARY ARTERY W/O ANG PCTRS Status: Chronic Qualifiers: Coronary Disease-Associated Artery/Lesion type: [place] artery [place] vs. transplanted heart: [place] heart Associated angina: without angina Qualified Code(s): I25.10 - Atherosclerotic heart disease of [place] coronary artery without angina pectoris (5) Chewing tobacco nicotine dependence Code(s): F17.220 - NICOTINE DEPENDENCE, CHEWING TOBACCO, UNCOMPLICATED Status : Chronic Qualifiers: Substance use status: unspecified nicotine-induced disorder Qualified Code( s): F17.229 - Nicotine dependence, chewing tobacco, with unspecified nicotine- induced disorders (6) Diabetes Code(s): E11.9 - TYPE 2 DIABETES MELLITUS WITHOUT COMPLICATIONS Status: Chronic Qualifiers: Diabetes mellitus type: type 2 Diabetes mellitus manager long term care insulin use: with manager long term care use Diabetes mellitus complication status: with hyperglycemia Qualified Code(s): E11.65 - Type 2 diabetes mellitus with hyperglycemia; Z79.4 - meterman (current) use of insulin (7) Hypercholesterolemia Code(s): E78.00 - PURE HYPERCHOLESTEROLEMIA, UNSPECIFIED Status: Chronic (8) Hypertension Code(s): I10 - ESSENTIAL (PRIMARY) HYPERTENSION Status: Chronic - Plan old records reviewed/req add glipizide home medication reconciled will monitor today and adjust his medication MRI brain Tele monitoring expecting discharge tomorrow medication reviewed and continue symptomatic treatment
--- NOTE | 2019-09-18 12:15 | PDOC.HOSPP ---
- Subjective Encounter Date: 09/18/19 Subjective: NEUROLOGY PROGRESS NOTE Patient left yesterday and was readmitted after an episode of SOB and diaphoresis. - Objective Vital Signs & Weight: Vital Signs (12 hours) Temp Pulse Pulse Pulse Resp BP BP 09/18/19 08:39 98 98 156/96 H 157/93 H 09/18/19 08:38 98 96 156/96 H 157/93 H 09/18/19 08:37 67 09/18/19 08:00 98.5 F 95 18 09/18/19 04:20 97.9 F 67 18 09/18/19 01:50 98.5 F 84 20 BP BP Pulse Ox 09/18/19 08:39 09/18/19 08:38 09/18/19 08:37 09/18/19 08:00 169/109 H 98 09/18/19 04:20 154/89 H 98 09/18/19 01:50 121/73 95 Weight Weight 169 lb 6.4 oz I&O: 09/17/19 09/18/19 09/19/19 06:59 06:59 06:59 Intake Total 1420 Balance 1420 Result Diagrams: 09/18/19 05:32 09/18/19 05:32 Additional Labs: Accuchecks 09/18/19 09/18/19 09/18/19 10:15 05:41 04:22 POC Glucose 269 H 227 H 284 H 09/18/19 02:06 POC Glucose 407 H Radiology Reviewed by me: Yes EKG Reviewed by me: Yes Hospitalist ROS - Review of Systems Constitutional: denies: fever, chills, sweats, weakness, malaise, other Eyes: denies: pain, vision change, conjunctivae inflammation, eyelid inflammation, redness, other ENT: denies: ear pain, ear discharge, nose pain, nose discharge, nose congestion , mouth pain, mouth swelling, throat pain, throat swelling, other Respiratory: denies: cough, dry, shortness of breath, hemoptysis, SOB with excertion, pleuritic pain, sputum, wheezing, other Cardiovascular: reports: chest pain, palpitations, orthopnea, light headedness. denies: paroxysmal noc. dyspnea, edema, other Gastrointestinal: reports: nausea, vomiting Genitourinary: denies: dysuria, frequency, incontinence, hematuria, retention, other Skin: denies: rash, lesions, cami, bruising, other - Medication Medications: Active Medications Generic Name Dose Route Start Last Admin Trade Name Freq PRN Reason Stop Dose Admin Acetaminophen 650 mg 09/17/19 23:57 09/18/19 00:21 Tylenol PO 650 mg Q6H PRN Administration Headache, Aches or Pain Amlodipine Besylate 10 mg 09/18/19 09:00 09/18/19 08:37 Norvasc PO 10 mg DAILY [facility] Administration Aspirin 325 mg 09/18/19 09:00 09/18/19 08:37 Ecotrin PO 325 mg DAILY [facility] Administration Enoxaparin Sodium 80 mg 09/18/19 09:00 09/18/19 08:37 Lovenox SC 80 mg 0900,2100 [facility] Administration Famotidine 20 mg 09/18/19 09:00 09/18/19 08:37 Pepcid PO 20 mg BID [facility] Administration Fluoxetine HCl 40 mg 09/18/19 09:00 09/18/19 08:37 Prozac PO 40 mg DAILY [facility] Administration Insulin Human Lispro 0 units 09/17/19 21:23 09/18/19 06:04 Humalog SC 3 unit .MILD SLIDING SCALE PRN Administration Mild Correctional Scale Insulin Human Lispro 0 units 09/17/19 21:23 09/18/19 02:12 Humalog SC 5 unit .BEDTIME SLIDING SC PRN Administration Bedtime Correctional Scale Lisinopril 40 mg 09/18/19 09:00 09/18/19 08:37 Zestril PO 40 mg DAILY [facility] Administration Metoprolol Tartrate 25 mg 09/18/19 09:00 09/18/19 08:37 Lopressor PO 25 mg BID [facility] Administration Ondansetron HCl 4 mg 09/17/19 23:57 09/18/19 00:21 Zofran IVP 4 mg Q6H PRN Administration Nausea/Vomiting - Exam General Appearance: awake alert Eye: PERRL, anicteric sclera ENT: normocephalic atraumatic, no oropharyngeal lesions Neck: supple, symmetric, no JVD Heart: RRR Respiratory: CTAB Gastrointestinal: soft Extremities: no cyanosis, no clubbing, no edema Skin: normal turgor, no lesions, no rashes Neurological: cranial nerve grossly intact, normal sensation to touch, no focal deficits Neurological - other findings: Mild left sided weakness 4+/5 Right 5/5 Musculoskeletal: normal tone Psychiatric: normal affect, normal behavior, A&O x 3, oriented to person, oriented to place, oriented to time Hosp A/P (1) TIA (transient ischemic attack) Code(s): G45.9 - TRANSIENT CEREBRAL ISCHEMIC ATTACK, UNSPECIFIED Status: Acute (2) Obesity (BMI 30.0-34.9) Code(s): E66.9 - OBESITY, UNSPECIFIED Status: Chronic (3) Chest pain Code(s): R07.9 - CHEST PAIN, UNSPECIFIED Status: Acute Qualifiers: Chest pain type: unspecified Qualified Code(s): R07.9 - Chest pain, unspecified (4) CAD (coronary artery disease) Code(s): I25.10 - ATHSCL HEART DISEASE OF [place] CORONARY ARTERY W/O ANG PCTRS Status: Chronic Qualifiers: Coronary Disease-Associated Artery/Lesion type: [place] artery [place] vs. transplanted heart: [place] heart Associated angina: without angina Qualified Code(s): I25.10 - Atherosclerotic heart disease of [place] coronary artery without angina pectoris (5) Diabetes Code(s): E11.9 - TYPE 2 DIABETES MELLITUS WITHOUT COMPLICATIONS Status: Chronic Qualifiers: Diabetes mellitus type: type 2 Diabetes mellitus manager long term care insulin use: with manager long term care use Diabetes mellitus complication status: with hyperglycemia Qualified Code(s): E11.65 - Type 2 diabetes mellitus with hyperglycemia; Z79.4 - predatory animal exterminator (current) use of insulin (6) Hypercholesterolemia Code(s): E78.00 - PURE HYPERCHOLESTEROLEMIA, UNSPECIFIED Status: Chronic (7) Hypertension Code(s): I10 - ESSENTIAL (PRIMARY) HYPERTENSION Status: Chronic - Plan old records reviewed/req, PT/OT, speech therapy, DVT proph w/SCDs 44 year old with episodes of left sided weakness in the setting of chest pain and shortness of breath. HCT reviewed which showed right temporal abnormalities suspicion for evolving infarct. Recommend MRI Brain Echocardiography was essentially unremarkable. Strict control of BP and BG. ASA and statin for secondary stroke prevention. Neurochecks every 4 hours. Telemetry to rule out arrythmias. PT/OT/Speech Continue home medications and medical management per primary team and cardiology.
--- NOTE | 2019-09-18 13:40 | MRI ---
Exam: Brain MRI without contrast HISTORY: Multiple transient ischemic attacks. COMPARISON: None FINDINGS: Markedly limited evaluation due to motion degradation on multiple sequences Calvarial marrow signal intensity: Appropriate T1 signal Gradient echo sequence: No hemorrhage Brain parenchyma: There is sulcal effacement with loss of stone-white matter differentiation, T2 and F LAIR hyperintensity involving the right temporal cortex. There is associated restricted diffusion. No midline shift. Basilar cisterns are patent. Brain volume is age-appropriate. Cortical stone-white matter differentiation: Loss of stone-white matter differentiation in the right te mporal lobe. Otherwise, cortical stone-white matter differentiation is preserved Restricted diffusion: Restricted diffusion involving the right temporal lobe compatible with a MCA di stribution infarct White matter signal intensities:Gliosis in the right temporal lobe secondary to MCA distribution infa rct. No significant white matter hyperintensities Sinuses: Adequate aeration of the paranasal sinuses and mastoid air cells. IMPRESSION: 1. Subacute right MCA distribution infarct
[2019-09-18] MEDS: glipiZIDE 5 MG TAB PO SCH (17:17)
[2019-09-18] MEDS ORDERED: Atorvastatin Calcium 40 MG TAB PO SCH (21:00)
[2019-09-18] MEDS ORDERED: tiZANidine HCl 4 MG TAB PO SCH (21:00)
--- NOTE | 2019-09-19 04:33 | PDOC.EVN ---
Event Note - Event Note Event Note: RN called - Pt had tachyarrythmia - Will obtain labs
[2019-09-19] MEDS ORDERED: Magnesium 2 GM/50 ML 2 GM in Premix Bag 1 BAG IVPB SCH (04:45)
[2019-09-19 05:33] LABS: Anion Gap 12 mmol/L (10-20); BUN (Urea Nitrogen) 11 mg/dL (8.9-20.6); Calc. Creatinine Clearance 94 mL/min (70-130); Calcium 8.9 mg/dL (7.8-10.44); Carbon Dioxide 26 mmol/L (22-29); Chloride 99 mmol/L (98-107); Estimated GFR-MDRD 74; Glucose 299 mg/dL (70-105); Potassium 3.8 mmol/L (3.5-5.1); Sodium 133 mmol/L (136-145)
[2019-09-19] MEDS: HumaLOG 300 UNITS/3 ML VIAL SC PRN ×2 (05:43→12:32)
[2019-09-19] MEDS: Amlodipine 10 MG TAB PO SCH (08:50)
[2019-09-19] MEDS: Aspirin 325 mg Enteric Coated Tablet PO SCH (08:50)
[2019-09-19] MEDS: Metoprolol Tartrate 25 MG TAB PO SCH (08:50)
[2019-09-19] MEDS: glipiZIDE 5 MG TAB PO SCH (08:50)
[2019-09-19] MEDS: Lisinopril 20 MG TAB PO SCH (08:50)
[2019-09-19] MEDS: FLUoxetine HCl 20 MG CAP PO SCH (08:50)
[2019-09-19] MEDS: Enoxaparin Sodium 80 MG/0.8 ML SYRINGE SC SCH (08:51)
[2019-09-19] MEDS: Famotidine 20 MG TAB PO SCH (08:51)
--- NOTE | 2019-09-19 09:39 | PDOC.HOSPP ---
- Subjective Encounter Date: 09/19/19 Encounter Time: 07:30 Subjective: last night he had AIVR, magnesium given, pt was asymptomatic, - Objective Vital Signs & Weight: Vital Signs (12 hours) Temp Pulse Resp BP Pulse Ox 09/19/19 08:50 58 L 09/19/19 08:00 98.1 F 58 L 16 126/74 99 09/19/19 04:00 98.0 F 58 L 16 133/73 98 09/18/19 23:23 98.4 F 63 14 117/73 96 Weight Weight 169 lb 6.4 oz I&O: 09/18/19 09/19/19 09/20/19 06:59 06:59 06:59 Intake Total 1420 Balance 1420 Result Diagrams: 09/18/19 05:32 09/19/19 05:02 Additional Labs: Accuchecks 09/19/19 09/18/19 09/18/19 04:26 20:56 16:51 POC Glucose 294 H 244 H 256 H 09/18/19 10:15 POC Glucose 269 H Radiology Reviewed by me: Yes EKG Reviewed by me: Yes Hospitalist ROS - Review of Systems ENT: denies: ear pain, ear discharge, nose pain, nose discharge, nose congestion , mouth pain, mouth swelling, throat pain, throat swelling, other Respiratory: denies: cough, dry, shortness of breath, hemoptysis, SOB with excertion, pleuritic pain, sputum, wheezing, other Cardiovascular: denies: chest pain, palpitations, orthopnea, paroxysmal noc. dyspnea, edema, light headedness, other Gastrointestinal: denies: nausea, vomiting, abdominal pain, diarrhea, constipation, melena, hematochezia, other Genitourinary: denies: dysuria, frequency, incontinence, hematuria, retention, other Musculoskeletal: denies: neck pain, shoulder pain, arm pain, back pain, hand pain, leg pain, foot pain, other - Medication Medications: Active Medications Generic Name Dose Route Start Last Admin Trade Name Freq PRN Reason Stop Dose Admin Acetaminophen 650 mg 09/17/19 23:57 09/18/19 17:17 Tylenol PO 650 mg Q6H PRN Administration Headache, Aches or Pain Amlodipine Besylate 10 mg 09/18/19 09:00 09/19/19 08:50 Norvasc PO 10 mg DAILY [facility] Administration Aspirin 325 mg 09/18/19 09:00 09/19/19 08:50 Ecotrin PO 325 mg DAILY [facility] Administration Atorvastatin Calcium 40 mg 09/18/19 21:00 09/18/19 20:55 Lipitor PO 40 mg HS [facility] Administration Enoxaparin Sodium 80 mg 09/18/19 09:00 09/19/19 08:51 Lovenox SC 80 mg 0900,2100 [facility] Administration Famotidine 20 mg 09/18/19 09:00 09/19/19 08:51 Pepcid PO 20 mg BID [facility] Administration Fluoxetine HCl 40 mg 09/18/19 09:00 09/19/19 08:50 Prozac PO 40 mg DAILY [facility] Administration Glipizide 5 mg 09/18/19 16:30 09/19/19 08:50 Glucotrol PO 5 mg BID-AC [facility] Administration Insulin Human Lispro 0 units 09/17/19 21:23 09/19/19 05:43 Humalog SC 4 unit .MILD SLIDING SCALE PRN Administration Mild Correctional Scale Insulin Human Lispro 0 units 09/17/19 21:23 09/18/19 20:57 Humalog SC 2 unit .BEDTIME SLIDING SC PRN Administration Bedtime Correctional Scale Lisinopril 40 mg 09/18/19 09:00 09/19/19 08:50 Zestril PO 40 mg DAILY [facility] Administration Metoprolol Tartrate 25 mg 09/18/19 09:00 09/19/19 08:50 Lopressor PO 25 mg BID [facility] Administration Ondansetron HCl 4 mg 09/17/19 23:57 09/18/19 00:21 Zofran IVP 4 mg Q6H PRN Administration Nausea/Vomiting Tizanidine HCl 4 mg 09/18/19 21:00 09/18/19 20:55 Zanaflex PO 4 mg HS [facility] Administration - Exam General Appearance: NAD, awake alert Eye: PERRL, anicteric sclera ENT: normocephalic atraumatic, no oropharyngeal lesions Neck: supple, symmetric, no JVD, no thyromegaly Heart: RRR, no murmur, no gallops, no rubs Respiratory: CTAB, no wheezes, no rales, no ronchi Gastrointestinal: soft, non-tender, non-distended, normal bowel sounds Extremities: no cyanosis, no clubbing, no edema Skin: normal turgor, no lesions Neurological: no focal deficits Musculoskeletal: normal tone, normal strength Psychiatric: normal affect, normal behavior Hosp A/P (1) CVA (cerebral vascular accident) Code(s): I63.9 - CEREBRAL INFARCTION, UNSPECIFIED Status: Acute Qualifiers: Precerebral and cerebral artery: middle cerebral artery Laterality of affected vessel: right (2) Chest pain Code(s): R07.9 - CHEST PAIN, UNSPECIFIED Status: Acute Qualifiers: Chest pain type: unspecified Qualified Code(s): R07.9 - Chest pain, unspecified (3) Obesity (BMI 30.0-34.9) Code(s): E66.9 - OBESITY, UNSPECIFIED Status: Chronic (4) CAD (coronary artery disease) Code(s): I25.10 - ATHSCL HEART DISEASE OF [place] CORONARY ARTERY W/O ANG PCTRS Status: Chronic Qualifiers: Coronary Disease-Associated Artery/Lesion type: [place] artery [place] vs. transplanted heart: [place] heart Associated angina: without angina Qualified Code(s): I25.10 - Atherosclerotic heart disease of [place] coronary artery without angina pectoris (5) Chewing tobacco nicotine dependence Code(s): F17.220 - NICOTINE DEPENDENCE, CHEWING TOBACCO, UNCOMPLICATED Status : Chronic Qualifiers: Substance use status: unspecified nicotine-induced disorder Qualified Code( s): F17.229 - Nicotine dependence, chewing tobacco, with unspecified nicotine- induced disorders (6) Diabetes Code(s): E11.9 - TYPE 2 DIABETES MELLITUS WITHOUT COMPLICATIONS Status: Chronic Qualifiers: Diabetes mellitus type: type 2 Diabetes mellitus prison insulin use: with buttermaker continuous churn use Diabetes mellitus complication status: with hyperglycemia Qualified Code(s): E11.65 - Type 2 diabetes mellitus with hyperglycemia; Z79.4 - residential (current) use of insulin (7) Hypercholesterolemia Code(s): E78.00 - PURE HYPERCHOLESTEROLEMIA, UNSPECIFIED Status: Chronic (8) Hypertension Code(s): I10 - ESSENTIAL (PRIMARY) HYPERTENSION Status: Chronic - Plan old records reviewed/req add glipizide home medication reconciled will monitor today and adjust his medication MRI brain Tele monitoring expecting discharge tomorrow medication reviewed and continue symptomatic treatment 09/19/19 will add metformin on discharge doing well if inside sales consultant ok, will consider dc
--- NOTE | 2019-09-19 10:45 | DIS ---
DATE OF ADMISSION: 09/17/2019 DATE OF DISCHARGE: 09/19/2019 PRIMARY CARE PHYSICIAN: Dr. Talon Clemons. DISCHARGE DISPOSITION: Home. PRIMARY DISCHARGE DIAGNOSES: 1. Right middle cerebral artery infarct. 2. Diabetes type 2, uncontrolled. 3. Chest pain, ruled out acute coronary syndrome. SECONDARY DISCHARGE DIAGNOSES: 1. Anxiety and depression. 2. Chronic low back pain. 3. Obesity, BMI 30. 4. Medication noncompliance. 5. Hypertension. 6. Dyslipidemia. PRIMARY PROCEDURE/OPERATION: None. RADIOLOGIST INVESTIGATION: Chest x-ray normal. CT brain negative. MRI brain showed right MCA subacute infarct. SIGNIFICANT LABORATORY DATA: WBC 7.3, hemoglobin 15.6, platelet 318. Sodium 133, creatinine 1.07, calcium 8.9, magnesium 2.0. Hemoglobin A1c 13.1, TSH 0.4. LFTs normal. Cardiac enzymes negative. Urinalysis unremarkable. Urine drug screen negative. DISCHARGE MEDICATIONS: 1. Aspirin 325 mg p.o. daily. 2. Lipitor 80 mg p.o. at bedtime. 3. Lisinopril 40 mg p.o. daily. 4. Lopressor 25 mg p.o. b.i.d. 5. Amlodipine 10 mg p.o. daily. 6. Nitroglycerin 0.4 mg sublingual p.r.n. for chest pain. 7. Zanaflex 4 mg p.o. at bedtime. 8. Prozac 40 mg p.o. daily. 9. Glipizide 5 mg p.o. b.i.d. 10. Metformin 1000 mg p.o. b.i.d. CONTRAINDICATION: None. CODE STATUS: Full code. INPATIENT STERILE TECH: Dr. Escalante was consulted while in hospital. Neurologist was following while in hospital. TEST RESULTS PENDING ON DISCHARGE: None. ALLERGIES: CODEINE. DISCHARGE PLAN: Post hospital, the patient will follow up with primary care physician in 1 week and the patient will follow up with Dr. Escalante in 2 to 3 weeks. HOSPITAL COURSE: A 44-year-old male who was admitted by a nurse practitioner. The patient was having stroke-like symptoms. Please see her H and P for more details. The patient was having left-sided weakness, which was intermittent. This patient left against medical advice from the hospital and subsequently, he came back within few hours. After admission, we did an MRI that showed a right MCA infarct. He already had echocardiography done, which showed a normal EF. His CT brain was unremarkable. He already had carotid Doppler which showed no stenosis. During this admission, we started glipizide and metformin for better diabetes control and I have provided extensive education about diabetic diet and medication. He is instructed to keep a log of blood sugar and follow up with primary care physician in 1 week for further adjustment of diabetes medication. Cardiology cleared him for discharge. Neurology cleared him for discharge. The patient is ambulatory and he is walking by himself without any problem. The patient is seen and examined at bedside today. Job ID: [id number]
[2019-09-19] MEDS: Acetaminophen 325 MG TAB PO PRN (12:31)
--- NOTE | 2019-09-19 13:17 | PDOC.HOSPP ---
- Subjective Encounter Date: 09/19/19 Subjective: NEUROLOGY PROGRESS NOTE Patient feeling better. No acute events overnight. - Objective Vital Signs & Weight: Vital Signs (12 hours) Temp Pulse Resp BP BP Pulse Ox 09/19/19 11:35 98.5 F 58 L 16 119/75 98 09/19/19 08:50 58 L 09/19/19 08:00 98.1 F 58 L 16 126/74 99 09/19/19 04:00 98.0 F 58 L 16 133/73 98 Weight Weight 169 lb 6.4 oz I&O: 09/18/19 09/19/19 09/20/19 06:59 06:59 06:59 Intake Total 1420 Balance 1420 Result Diagrams: 09/18/19 05:32 09/19/19 05:02 Additional Labs: Accuchecks 09/19/19 09/19/19 09/18/19 10:44 04:26 20:56 POC Glucose 169 H 294 H 244 H 09/18/19 16:51 POC Glucose 256 H Radiology Reviewed by me: Yes EKG Reviewed by me: Yes Hospitalist ROS - Review of Systems Constitutional: denies: fever, chills, sweats, weakness, malaise, other Eyes: denies: pain, vision change, conjunctivae inflammation, eyelid inflammation, redness, other ENT: denies: ear pain, ear discharge, nose pain, nose discharge, nose congestion , mouth pain, mouth swelling, throat pain, throat swelling, other Respiratory: denies: cough, dry, shortness of breath, hemoptysis, SOB with excertion, pleuritic pain, sputum, wheezing, other Cardiovascular: reports: chest pain, palpitations, orthopnea, light headedness. denies: paroxysmal noc. dyspnea, edema, other Gastrointestinal: denies: nausea, vomiting, abdominal pain, diarrhea, constipation, melena, hematochezia, other Genitourinary: denies: dysuria, frequency, incontinence, hematuria, retention, other Musculoskeletal: denies: neck pain, shoulder pain, arm pain, back pain, hand pain, leg pain, foot pain, other Neurological: reports: incoordination - Medication Medications: Active Medications Generic Name Dose Route Start Last Admin Trade Name Freq PRN Reason Stop Dose Admin Acetaminophen 650 mg 09/17/19 23:57 09/19/19 12:31 Tylenol PO 650 mg Q6H PRN Administration Headache, Aches or Pain Amlodipine Besylate 10 mg 09/18/19 09:00 09/19/19 08:50 Norvasc PO 10 mg DAILY SALOME Administration Aspirin 325 mg 09/18/19 09:00 09/19/19 08:50 Ecotrin PO 325 mg DAILY SALOME Administration Atorvastatin Calcium 40 mg 09/18/19 21:00 09/18/19 20:55 Lipitor PO 40 mg HS [facility] Administration Enoxaparin Sodium 80 mg 09/18/19 09:00 09/19/19 08:51 Lovenox SC 80 mg 0900,2100 SALOME Administration Famotidine 20 mg 09/18/19 09:00 09/19/19 08:51 Pepcid PO 20 mg BID SALOME Administration Fluoxetine HCl 40 mg 09/18/19 09:00 09/19/19 08:50 Prozac PO 40 mg DAILY SALOME Administration Glipizide 5 mg 09/18/19 16:30 09/19/19 08:50 Glucotrol PO 5 mg BID-AC SALOME Administration Insulin Human Lispro 0 units 09/17/19 21:23 09/19/19 12:32 Humalog SC 2 unit .MILD SLIDING SCALE PRN Administration Mild Correctional Scale Insulin Human Lispro 0 units 09/17/19 21:23 09/18/19 20:57 Humalog SC 2 unit .BEDTIME SLIDING SC PRN Administration Bedtime Correctional Scale Lisinopril 40 mg 09/18/19 09:00 09/19/19 08:50 Zestril PO 40 mg DAILY SALOME Administration Metoprolol Tartrate 25 mg 09/18/19 09:00 09/19/19 08:50 Lopressor PO 25 mg BID SALOME Administration Ondansetron HCl 4 mg 09/17/19 23:57 09/18/19 00:21 Zofran IVP 4 mg Q6H PRN Administration Nausea/Vomiting Tizanidine HCl 4 mg 09/18/19 21:00 09/18/19 20:55 Zanaflex PO 4 mg HS [facility] Administration - Exam General Appearance: awake alert Eye: PERRL, anicteric sclera ENT: normocephalic atraumatic, no oropharyngeal lesions, moist mucosa Neck: supple, symmetric, no JVD Heart: RRR Respiratory: CTAB Gastrointestinal: soft Extremities: no cyanosis, no clubbing, no edema Skin: normal turgor, no lesions Neurological: cranial nerve grossly intact, normal sensation to touch, no weakness, no focal deficits Musculoskeletal: normal tone, normal strength, no muscle wasting Psychiatric: normal affect, normal behavior, A&O x 3, oriented to person, oriented to place, oriented to time Hosp A/P (1) CVA (cerebral vascular accident) Code(s): I63.9 - CEREBRAL INFARCTION, UNSPECIFIED Status: Acute Qualifiers: Precerebral and cerebral artery: middle cerebral artery Laterality of affected vessel: right (2) Obesity (BMI 30.0-34.9) Code(s): E66.9 - OBESITY, UNSPECIFIED Status: Chronic (3) Chest pain Code(s): R07.9 - CHEST PAIN, UNSPECIFIED Status: Acute Qualifiers: Chest pain type: unspecified Qualified Code(s): R07.9 - Chest pain, unspecified (4) CAD (coronary artery disease) Code(s): I25.10 - ATHSCL HEART DISEASE OF [place] CORONARY ARTERY W/O ANG PCTRS Status: Chronic Qualifiers: Coronary Disease-Associated Artery/Lesion type: [place] artery [place] vs. transplanted heart: [place] heart Associated angina: without angina Qualified Code(s): I25.10 - Atherosclerotic heart disease of [place] coronary artery without angina pectoris (5) Diabetes Code(s): E11.9 - TYPE 2 DIABETES MELLITUS WITHOUT COMPLICATIONS Status: Chronic Qualifiers: Diabetes mellitus type: type 2 Diabetes mellitus [place] insulin use: with nursing home use Diabetes mellitus complication status: with hyperglycemia Qualified Code(s): E11.65 - Type 2 diabetes mellitus with hyperglycemia; Z79.4 - prison (current) use of insulin (6) Hypercholesterolemia Code(s): E78.00 - PURE HYPERCHOLESTEROLEMIA, UNSPECIFIED Status: Chronic (7) Hypertension Code(s): I10 - ESSENTIAL (PRIMARY) HYPERTENSION Status: Chronic - Plan old records reviewed/req 44 year old with episodes of left sided weakness in the setting of chest pain and shortness of breath. HCT reviewed which showed right temporal abnormalities suspicion for evolving infarct. MRI Brain reviewed which was consistent with subacute infarction Echocardiography was essentially unremarkable. Strict control of BP and BG. ASA and statin for secondary stroke prevention. Neurochecks every 4 hours. Telemetry to rule out arrythmias. PT/OT/Speech Continue home medications and medical management per primary team and cardiology. No further recommendations from neurology stand point.
[2019-09-19 15:22] VITALS: BP 124/74; TEMP 98.4
--- NOTE | 2019-09-20 06:38 | PRG ---
DATE OF SERVICE: 09/19/2019 SUBJECTIVE: Mr. Burroughs is doing well. No recurrent episodes of chest pain. OBJECTIVE: VITAL SIGNS: Blood pressure 124/74, pulse 64, and temperature 98.4. LUNGS: Clear to auscultation. HEART: Regular rate and rhythm. ABDOMEN: Soft, nontender, and nondistended. EXTREMITIES: No edema. IMPRESSION: 1. Recent cerebrovascular accident. 2. Atypical chest pain. RECOMMENDATIONS: At this point, we will continue medical therapy. We would add Imdur in addition to beta-ced therapy. Given recent stroke diagnosed by MRI, I would recommend continuing medical therapy given that he is currently stable. The patient is to follow up with me in my office in the next 1 week. Job ID: [id number]
--- NOTE | 2019-09-23 13:30 | EKG ---
Test Reason : Blood Pressure : / mmHG Vent. Rate : 077 BPM Atrial Rate : 077 BPM P-R Int : 154 ms QRS Dur : 074 ms QT Int : 348 ms P-R-T Axes : 012 012 159 degrees QTc Int : 393 ms Normal sinus rhythm Abnormal ECG Confirmed by PILY AGUILAR DO ([id number]), managing editor INDRA SALEH ([id number]) on 09/23/2019 1:29:59 PM Referred By: Confirmed By:PILY AGUILAR DO
== END 2019-09-19 16:58 | disposition home or self-care (01) | DRG 65 ==
LOC: ERS 17:26 → EEVIPCON 17:26 → 2SE 19:00
PROVIDERS: ADMIT Internal Medicine; ATTEND Internal Medicine
DX: I63.511 Cerebral infarction due to unspecified occlusion or stenosis of right middle cerebral artery (principal); G81.94 Hemiplegia, unspecified affecting left nondominant side; E11.65 Type 2 diabetes mellitus with hyperglycemia; F41.9 Anxiety disorder, unspecified; F32.9 Major depressive disorder, single episode, unspecified; M54.5 Low back pain; E66.9 Obesity, unspecified; I10 Essential (primary) hypertension; E78.5 Hyperlipidemia, unspecified; E78.00 Pure hypercholesterolemia, unspecified; R47.1 Dysarthria and anarthria; R29.810 Facial weakness; I25.10 Atherosclerotic heart disease of native coronary artery without angina pectoris; F17.220 Nicotine dependence, chewing tobacco, uncomplicated; R29.700 NIHSS score 0; Z68.30 Body mass index [BMI] 30.0-30.9, adult; Z91.14 Patient's other noncompliance with medication regimen; Z79.82 Long term (current) use of aspirin; Z79.899 Other long term (current) drug therapy
CPT/HCPCS: 36415; 36416; 70450; 70551; 71045; 80048; 80053; 80306; 80307; 81003; 82550; 83036; 83690; 83735; 84443; 85025; 93005; 96374; J1650; J2060; J2405

== ENCOUNTER 2019-09-21 00:07 | Inpatient (IN) | payer SELFPAY ==
[2019-09-21 00:29] LABS: #Basophils 0.1 thou/uL (0.0-0.2); #Eosinphils 0.1 thou/uL (0.0-0.7); #Lymphocytes 1.2 thou/uL (1.20-3.40); #Monocytes 0.7 thou/uL (0.11-0.59); #Neutrophils 6.6 thou/uL (1.40-6.50); %Basophils 0.6 % (0.0-1.0); %Eosinophils 0.6 % (0.0-10.0); %Lymphocytes 14.1 % (21.0-51.0); %Monocytes 8.5 % (0.0-10.0); %Neutrophils 76.2 % (42.0-75.0); Hemoglobin 15.5 g/dL (14.0-18.0); Mean Corpuscular HGB CONC 33.1 g/dL (32.0-36.0); Mean Corpuscular Hemoglobin 29.9 pg (27.0-31.0); Mean Corpuscular Volume 90.5 fL (78.0-98.0); Mean Platelet Volume 7.7 fL (7.4-10.4); Platelet Count 297 thou/uL (130-400); RBC Distribution Width 12.7 % (11.5-14.5); Red Blood Cell (RBC) Count 5.18 mill/uL (4.70-6.10); White Blood Cell (WBC) Count 8.7 thou/uL (4.8-10.8)
[2019-09-21 00:50] LABS: ALT (SGPT) 24 U/L (8-55); AST (SGOT) 23 U/L (5-34); Albumin 4.2 g/dL (3.5-5.0); Alkaline Phosphatase 50 U/L (40-110); Anion Gap 14 mmol/L (10-20); BUN (Urea Nitrogen) 15 mg/dL (8.9-20.6); Bilirubin, Total 0.3 mg/dL (0.2-1.2); Calc. Creatinine Clearance 0 mL/min (70-130); Calcium 9.4 mg/dL (7.8-10.44); Carbon Dioxide 21 mmol/L (22-29); Chloride 106 mmol/L (98-107); Estimated GFR-MDRD 80; Globulin 3.1 g/dL (2.4-3.5); Glucose 280 mg/dL (70-105); Potassium 4.5 mmol/L (3.5-5.1); Protein, Total 7.3 g/dL (6.0-8.3); Sodium 136 mmol/L (136-145)
[2019-09-21 01:08] LABS: Amphetamine Not Detected (NotDetected); Barbiturates Screen Not Detected (NotDetected); Benzodiazepine Screen Not Detected (NotDetected); Cocaine Metabolite Screen Not Detected (NotDetected); Medtox Control Line Valid? VALID (VALID); Medtox Reader # READER 4; Methadone Not Detected (NotDetected); Methamphetamine Not Detected (NotDetected); Opiate Screen Not Detected (NotDetected); Oxycodone Screen Not Detected (NotDetected); Phencyclidine (PCP) Not Detected (NotDetected); THC/Cannabinoid Screen Not Detected (NotDetected); Tricyclic Screen Not Detected (NotDetected)
[2019-09-21] MEDS ORDERED: Clopidogrel Bisulfate 75 MG TAB ONE (01:22)
[2019-09-21] MEDS ORDERED: hydrALAZINE 20 MG/ML VIAL SLOW IVP PRN (02:08)
[2019-09-21] MEDS ORDERED: Labetalol HCl 100 MG/20 ML VIAL SLOW IVP PRN ×2 (02:08→18:06)
[2019-09-21] MEDS ORDERED: Dextrose 50% Abboject 50 ML SYRINGE SLOW IVP PRN (02:11)
[2019-09-21] MEDS ORDERED: Dextrose 5% in Water 1,000 ML IV PRN (02:11)
[2019-09-21] MEDS ORDERED: HumaLOG 300 UNITS/3 ML VIAL SC PRN (02:11)
[2019-09-21] MEDS ORDERED: Senokot S 8.6-50 MG TAB PO PRN (02:13)
--- NOTE | 2019-09-21 02:23 | PDOC.HHP ---
Hospitalist HPI - History of Present Illness Left sided weakness History of Present Illness: PCP: Dr. Clemons The patient is a 44/M with PMH significant for CVA, HTN, HLD, DMII, CAD (x2 stents), obesity that presents to the ER for the above complaint. The patient reports acute onset of left hemiparesis and facial numbness, onset 2300. Reports he was laying in bed, listening to an audio book, when he noticed excessive saliva from his mouth, associated with left facial numbness and left upper extremity and lower extremity numbness and weakness. He had friends over at his house, they immediately called 911. EMS found the patient to be hypertensive 213/133, with intermittent left sided weakness and dysarthria. They gave labetalol, which relieved his symptoms. The patient was recently discharged from this hospital on 09/19/2019 for CVA, discharged on full aspirin and statin, which he says he has been taking as prescribed. He has not been able to follow up with any doctors as of yet. He denies any recent falls or injuries. Denies headache. Denies chest pain, heart palpitations, sob, any other symptomatology at this time. ED Course: CT brain and CT head neck showed right frontal infarct and old right temporal infarct EKG NSR with T wave inversions Trop negative VSS glucose 280 UDS negative CMP and CBC unremarkable ER doctor consulted Neurology who recommended continuation full ASA and add plavix Given: Plavix 75mg po x 1 dose Allergies: codeine Home Medications: Nursing to reconcile Hospitalist ROS - Review of Systems Constitutional: denies: fever, chills, sweats, malaise, other Eyes: denies: pain, vision change, conjunctivae inflammation, eyelid inflammation, redness, other ENT: denies: ear pain, ear discharge, nose pain, nose discharge, nose congestion , mouth pain, mouth swelling, throat pain, throat swelling, other Respiratory: denies: cough, dry, shortness of breath, hemoptysis, SOB with excertion, pleuritic pain, sputum, wheezing, other Cardiovascular: denies: chest pain, palpitations, orthopnea, paroxysmal noc. dyspnea, edema, light headedness, other Gastrointestinal: denies: nausea, vomiting, abdominal pain, diarrhea, constipation, melena, hematochezia, other Genitourinary: denies: dysuria, frequency, incontinence, hematuria, retention, other Musculoskeletal: denies: neck pain, shoulder pain, arm pain, back pain, hand pain, leg pain, foot pain, other Skin: denies: rash, lesions, cami, bruising, other Neurological: reports: weakness (left sided weakness and numbness Left facial numbness), numbness, change in speech. 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 Psych: reports: Anxiety, Depression Endocrine: reports: Diabetes (Type II, uncontrolled) - Past Surgical History Past Surgical History: reports: no pertinent history - Family History Family History: reports: cardiac disorder, cerebrovascular accident, diabetes mellitus, hyperlipidemia, hypertension - Social History Smoking Status: Never smoker Tobacco Type: chewing tobacco (1can per week) Alcohol: reports: Occassional Drugs: reports: none Living Situation: Alone 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[facility], 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, 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 Activity level: independent ambulation - Exam General Appearance: NAD, awake alert Eye: anicteric sclera ENT: normocephalic atraumatic Neck: supple, no JVD Heart: RRR, no murmur, no gallops, no rubs, normal peripheral pulses Respiratory: CTAB, no wheezes, no rales, no ronchi, normal chest expansion, no tachypnea Gastrointestinal: soft, non-tender, normal bowel sounds, no guarding, no rigidity Extremities: no cyanosis Skin: no rashes Neurological: cranial nerve grossly intact, no focal deficits Neurological - other findings: GCS 15, NIH 0 Musculoskeletal: normal tone, normal strength Psychiatric: normal affect, A&O x 3 Hospitalist Results - Labs Result Diagrams: 09/21/19 00:17 09/21/19 00:17 Lab results: WBC 8.7 thou/uL (4.8-10.8) 09/21/19 00:17 Hgb 15.5 g/dL (14.0-18.0) 09/21/19 00:17 Hct 46.9 % (42.0-52.0) 09/21/19 00:17 MCV 90.5 fL (78.0-98.0) 09/21/19 00:17 Plt Count 297 thou/uL (130-400) 09/21/19 00:17 Neutrophils % 76.2 % (42.0-75.0) H 09/21/19 00:17 Sodium 136 mmol/L (136-145) 09/21/19 00:17 Potassium 4.5 mmol/L (3.5-5.1) 09/21/19 00:17 Chloride 106 mmol/L (98-107) 09/21/19 00:17 Carbon Dioxide 21 mmol/L (22-29) L 09/21/19 00:17 BUN 15 mg/dL (8.9-20.6) 09/21/19 00:17 Creatinine 1.01 mg/dL (0.7-1.3) 09/21/19 00:17 Glucose 280 mg/dL (70-105) H 09/21/19 00:17 Calcium 9.4 mg/dL (7.8-10.44) 09/21/19 00:17 Total Bilirubin 0.3 mg/dL (0.2-1.2) 09/21/19 00:17 AST 23 U/L (5-34) 09/21/19 00:17 ALT 24 U/L (8-55) 09/21/19 00:17 Alkaline Phosphatase 50 U/L (40-110) 09/21/19 00:17 Troponin I 0.011 ng/mL (< 0.028) 09/21/19 00:17 Serum Total Protein 7.3 g/dL (6.0-8.3) 09/21/19 00:17 Albumin 4.2 g/dL (3.5-5.0) 09/21/19 00:17 - EKG Interpretation EKG: NSR - Radiology Interpretation CT scan - head Status: report reviewed by pa Hospitalist H&P A/P - Problem (1) CVA (cerebral vascular accident) Code(s): I63.9 - CEREBRAL INFARCTION, UNSPECIFIED Status: Acute Assessment and Plan: Admit to stroke unit, inpatient status Expected stay at least [address]/CTA + right frontal infarct and old right temporal infarct Neurology consulted in ER, recommended continue ASA and add Plavix Will continue ASA, plavix and high intensity statin Patient recently had full stroke workup, including MRI, echocardiogram, FLP, HA1C Consult stroke team, neuro checks, permissive HTN Neurology to see patient (2) Hypertensive emergency Code(s): I16.1 - HYPERTENSIVE EMERGENCY Status: Acute Assessment and Plan: EMS found patient 213/133, resolved with Labetolol 10mg IVP Will restart home meds when reconciled by nursing Will allow permissive HTN, prn antihypertensive meds (3) DMII (diabetes mellitus, type 2) Status: Chronic Assessment and Plan: Uncontrolled, HA1C 13.1 on 09/18/2019 Will hold home glypizide and metformin Will add mild sliding scale AC/HS accuchecks CC diet (4) HTN (hypertension) Code(s): I10 - ESSENTIAL (PRIMARY) HYPERTENSION Status: Chronic Assessment and Plan: Will restart home meds when reconciled by nursing HH diet (5) HLD (hyperlipidemia) Code(s): E78.5 - HYPERLIPIDEMIA, UNSPECIFIED Status: Chronic Assessment and Plan: Started atrovastatin 80mg q day FLP completed on 09/17/2019 (6) Tobacco abuse Code(s): Z72.0 - TOBACCO USE Status: Chronic Assessment and Plan: 1can snuff per week 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 Palmer
[2019-09-21 03:31] VITALS: BMI 31.1
[2019-09-21] MEDS: Acetaminophen 325 MG TAB PO PRN (05:03)
[2019-09-21 05:12] LABS: #Eosinphils 0.1 thou/uL (0.0-0.7); #Lymphocytes 1.7 thou/uL (1.20-3.40); #Monocytes 0.4 thou/uL (0.11-0.59); #Neutrophils 5.6 thou/uL (1.40-6.50); %Basophils 0.5 % (0.0-1.0); %Eosinophils 0.7 % (0.0-10.0); %Lymphocytes 21.8 % (21.0-51.0); %Monocytes 5.5 % (0.0-10.0); %Neutrophils 71.5 % (42.0-75.0); Hemoglobin 14.3 g/dL (14.0-18.0); Mean Corpuscular HGB CONC 32.9 g/dL (32.0-36.0); Mean Corpuscular Hemoglobin 29.8 pg (27.0-31.0); Mean Corpuscular Volume 90.5 fL (78.0-98.0); Mean Platelet Volume 7.7 fL (7.4-10.4); Platelet Count 296 thou/uL (130-400); RBC Distribution Width 12.6 % (11.5-14.5); White Blood Cell (WBC) Count 7.8 thou/uL (4.8-10.8)
[2019-09-21 05:29] LABS: Anion Gap 14 mmol/L (10-20); BUN (Urea Nitrogen) 14 mg/dL (8.9-20.6); Calc. Creatinine Clearance 137 mL/min (70-130); Carbon Dioxide 21 mmol/L (22-29); Chloride 105 mmol/L (98-107); Estimated GFR-MDRD Greater than 90; Glucose 191 mg/dL (70-105); Potassium 3.9 mmol/L (3.5-5.1); Sodium 136 mmol/L (136-145)
[2019-09-21] MEDS: HumaLOG 300 UNITS/3 ML VIAL SC PRN ×3 (06:06→17:05)
--- NOTE | 2019-09-21 07:42 | CT ---
PRELIMINARY REPORT/[facility]/EMERGENCY AFTER HOURS PROCEDURE Receipt of this report by the clinical staff was confirmed with Marina Alexander MD by Alyssa Han on September 21, 2019 00:26:00 CDT. Addendum electronically signed by Ana Han on September 21, 2019 12:27:03 AM CDT HISTORY: *LEVEL 1 STROKE* M44, LSN AT 2300, PATIENT STATES HE STARTED HAVING LEFT SIDED FACIAL NUMBN ESS. COULDNT SPEAK FOR EMS, SYMPTOMS HAVE RESOLVED CT HEAD TECHNIQUE: Without contrast. COMPARISON: None. LIMITATIONS: None. BRAIN: No acute hemorrhage. Small region of cortical and subcortical hypodensity in the right front al lobe. Subcortical hypodensity in the right temporal lobe. Old right basal ganglia infarct. No m ass or midline shift. VENTRICLES: No hydrocephalus. EXTRA-AXIAL SPACES: No hemorrhages, fluid collections, or masses. CALVARIUM/SKULL BASE: Normal. FACE/SINUSES: Visualized portions normal. SOFT TISSUES: Normal. OTHER: Soft tissue density within the external auditory canals, likely cerumen. CONCLUSION: Acute ischemia in the right frontal lobe. Right temporal lobe hypodensity, likely a suba cute or old infarct. ELECTRONICALLY SIGNED BY: Grace Pickett M.D. September 21, 2019 12:23:40 AM CDT FINAL REPORT CT BRAIN WITHOUT CONTRAST: Comparison is made with the exam of 09/17/2019. No significant interval change is seen. No hemorrhag ic transformation of the infarcts is identified. I agree with the preliminary report given by [facility]. If symptoms have changed, a followup MRI would be helpful. POS: GILBERT
--- NOTE | 2019-09-21 07:56 | CT ---
PRELIMINARY REPORT/[facility]/EMERGENCY AFTER HOURS PROCEDURE: Receipt of this report by the clinical staff was confirmed with Marina Alexander MD by Aylssa Han on September 21, 2019 00:53:00 CDT. Addendum electronically signed by Ana Han on September 21, 2019 12:54:11 AM CDT HEAD and NECK CT ANGIOGRAM HISTORY: *LEVEL 1 STROKE* M44, LSN AT 2300, PATIENT STATES HE STARTED HAVING LEFT SIDED FACIAL NUMBN ESS. COULDN'T SPEAK FOR EMS, SYMPTOMS HAVE RESOLVED COMPARISON: None. LIMITATIONS: None. CT ANGIOGRAM HEAD: CAROTID ARTERIES: No occlusion. Moderate diffuse narrowing of the lacerum segment of the right ICA ( C3 segment), with mild narrowing of the supraclinoid segment. There is luminal irregularity of the cavernous segments bilaterally. No aneurysm. ANTERIOR CEREBRAL ARTERIES: Normal. MIDDLE CEREBRAL ARTERIES: No occlusion. Mild diffuse narrowing of the right M1 segment. Normal on t he left. POSTERIOR CEREBRAL ARTERIES: Normal. BASILAR ARTERY: Normal. VERTEBRAL ARTERIES: Normal. VENOUS STRUCTURES: Normal. OTHER: None. CT ANGIOGRAM NECK: AORTIC ARCH: Normal. CAROTID ARTERIES: Irregularity in the mid left CCA for a length of 5.9 mm (Se: 300, Im: 66), in the region of imaging artifact. Mild calcified plaque at the left carotid bifurcation. Mild soft plaque in the right carotid artery bifurcation with mild luminal narrowing. VERTEBRAL ARTERIES: No occlusion. No dissection. Areas of luminal narrowing in the proximal left ve rtebral artery and a few regions of the right vertebral artery. OTHER ARTERIES: Normal. VENOUS STRUCTURES: Normal. SOFT TISSUES: Normal. BONES: No acute osseous abnormality seen. OTHER: None. CONCLUSION: No arterial occlusion, aneurysm or dissection. Areas of right carotid artery luminal na rrowing, with greatest involvement of the C3 segment. Irregularity of the cavernous segments of both ICAs, possibly due to atherosclerosis or fibromuscular dysplasia. ELECTRONICALLY SIGNED BY: Grace Pickett M.D. September 21, 2019 12:49:04 AM CDT FINAL REPORT CT ARTERIOGRAM NECK WITH IV CONTRAST AND 3D IMAGING CT ARTERIOGRAM HEAD WITH IV CONTRAST AND 3D IMAGING: DATE: 09/21/2019. TIME: Performed on an emergency basis at 0021 hours. HISTORY: CVA. Level 1 stroke. Facial numbness. Aphasia. FINDINGS: Agree with the preliminary report to Dr. Pickett from [facility]. Areas of luminal narrowing of the intracranial portions of the right carotid artery. No complete occlusion. No focal aneurysm evident. Transcribed Date/Time: 09/21/2019 8:06 AM
[2019-09-21] MEDS: Enoxaparin Sodium 40 MG/0.4 ML SYRINGE SC SCH (08:27)
[2019-09-21] MEDS: Famotidine/PF 20 mg/2ml Vial SLOW IVP SCH ×2 (08:28→20:46)
[2019-09-21] MEDS: Famotidine 20 MG TAB PO SCH ×2 (08:28→20:55)
[2019-09-21] MEDS: Aspirin 325 mg Enteric Coated Tablet PO SCH (08:28)
[2019-09-21] MEDS ORDERED: Iopamidol-370 76% 500 ML 1 ML ONE (09:48)
--- NOTE | 2019-09-21 12:30 | CON ---
DATE OF CONSULTATION: 09/21/2019 REASON FOR CONSULTATION: Left-sided weakness. HISTORY OF PRESENT ILLNESS: Mr. Burroughs is a 44-year-old male with medical history significant for prior stroke, hypertension, hyperlipidemia, diabetes mellitus type 2, coronary artery disease, obesity, presented to the emergency room with acute onset of left-sided weakness and facial numbness. This started around 2300 hours, 09/20/2019. According to the patient, he was reading a book and all of a sudden he noticed excessive drooling from the side of the mouth and he felt that his left side of the face was numb and had weakness and numbness of the left upper and lower extremities. He had friends over his house, so they called 911 and he came to the emergency room. He was hypertensive with a blood pressure of 213/133. Exam revealed left side weakness and dysarthria. The patient is well known to us and has been recently discharged from the hospital on 09/19/2019 for stroke, on aspirin and statin. He was not able to follow up with his doctors. He had a complete stroke workup during that admission. In the ED, CT of the head was done which showed right frontal infarct and old right temporal infarct. I received a call from the emergency room around 1:30 a.m. about the recommendations and added Plavix . The patient denies nausea, vomiting, headache, chest pain, abdominal pain, loss of vision or loss of consciousness associated with this episode. His symptoms are almost resolved MEDICATIONS: Norvasc 10 mg daily Aspirin 325 mg daily Lipitor 40 mg daily Famotidine 20 mg bid Pepcid 20 mg BID Prozac 40 mg daily Zestril 40 mg daily Metoprolol 25 mg bid - Review of Systems Constitutional: denies: fever, chills, sweats, malaise, other Eyes: denies: pain, vision change, conjunctivae inflammation, eyelid inflammation, redness, other ENT: denies: ear pain, ear discharge, nose pain, nose discharge, nose congestion , mouth pain, mouth swelling, throat pain, throat swelling, other Respiratory: denies: cough, dry, shortness of breath, hemoptysis, SOB with excertion, pleuritic pain, sputum, wheezing, other Cardiovascular: denies: chest pain, palpitations, orthopnea, paroxysmal noc. dyspnea, edema, light headedness, other Gastrointestinal: denies: nausea, vomiting, abdominal pain, diarrhea, constipation, melena, hematochezia, other Genitourinary: denies: dysuria, frequency, incontinence, hematuria, retention, other Musculoskeletal: denies: neck pain, shoulder pain, arm pain, back pain, hand pain, leg pain, foot pain, other Skin: denies: rash, lesions, cami, bruising, other Neurological: reports: left sided weakness and numbness Left facial numbness , numbness, change in speech. 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 Psych: reports: Anxiety, Depression Endocrine: reports: Diabetes (Type II, uncontrolled) - Past Surgical History Past Surgical History: reports: no pertinent history - Family History Family History: reports: cardiac disorder, cerebrovascular accident, diabetes mellitus, hyperlipidemia, hypertension - Social History Smoking Status: Never smoker Tobacco Type: chewing tobacco (1can per week) Alcohol: reports: Occassional Drugs: reports: none Living Situation: Alone 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[facility], works [employer], 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 Activity level: independent ambulation - Exam General Appearance: NAD, awake alert Eye: anicteric sclera ENT: normocephalic atraumatic Neck: supple, no JVD Heart: RRR, no murmur, no gallops, no rubs, normal peripheral pulses Respiratory: CTAB, no wheezes, no rales, no ronchi, normal chest expansion, no tachypnea Gastrointestinal: soft, non-tender, normal bowel sounds, no guarding, no rigidity Extremities: no cyanosis Skin: no rashes Neurological:N Mental status: The patient is alert and oriented to person, place, and time. Cranial nerves 2 through 12 intact. Sensory intact. Motor, moving all four extremities equally and symmetrically. Gait not tested because of the patient's safety reasons. Cerebellar: Intact. Reflexes 2+ bilaterally. Musculoskeletal: normal tone, normal strength Psychiatric: normal affect, A&O x 3 Lab results: WBC 8.7 thou/uL (4.8-10.8) 09/21/19 00:17 Hgb 15.5 g/dL (14.0-18.0) 09/21/19 00:17 Hct 46.9 % (42.0-52.0) 09/21/19 00:17 MCV 90.5 fL (78.0-98.0) 09/21/19 00:17 Plt Count 297 thou/uL (130-400) 09/21/19 00:17 Neutrophils % 76.2 % (42.0-75.0) H 09/21/19 00:17 Sodium 136 mmol/L (136-145) 09/21/19 00:17 Potassium 4.5 mmol/L (3.5-5.1) 09/21/19 00:17 Chloride 106 mmol/L (98-107) 09/21/19 00:17 Carbon Dioxide 21 mmol/L (22-29) L 09/21/19 00:17 BUN 15 mg/dL (8.9-20.6) 09/21/19 00:17 Creatinine 1.01 mg/dL (0.7-1.3) 09/21/19 00:17 Glucose 280 mg/dL (70-105) H 09/21/19 00:17 Calcium 9.4 mg/dL (7.8-10.44) 09/21/19 00:17 Total Bilirubin 0.3 mg/dL (0.2-1.2) 09/21/19 00:17 AST 23 U/L (5-34) 09/21/19 00:17 ALT 24 U/L (8-55) 09/21/19 00:17 Alkaline Phosphatase 50 U/L (40-110) 09/21/19 00:17 Troponin I 0.011 ng/mL (< 0.028) 09/21/19 00:17 Serum Total Protein 7.3 g/dL (6.0-8.3) 09/21/19 00:17 Albumin 4.2 g/dL (3.5-5.0) 09/21/19 00:17 ALLERGIES: CODEINE. HOME MEDICATIONS: 1. He is on aspirin. 2. Statin. LABORATORY DATA: Labs significant for hyperglycemia, otherwise essentially unremarkable. ASSESSMENT AND PLAN: Mr. Burroughs is readmitted again for a new right frontal infarct. He was recently discharged on 09/19/2019 with old right temporal infarct stroke workup completed during the last admission, which includes MRI, echocardiogram, hemoglobin A1c, fasting lipid profile. Continue aspirin and high intensity statin for secondary stroke prevention. Add Plavix 75 mg daily for secondary stroke prevention. Neuro checks every 4 hours. Consider stat head CT. If the condition worsens, continue home medications, strict control of blood glucose, permissive blood pressure control at this time. Continue medical management per primary team including hypertensive emergency. We will continue to follow. Thank you for the consult. Job ID: [id number] PENNIE
[2019-09-21] MEDS ORDERED: Nitroglycerin 0.4 MG TAB (25 Tab Bottle) SL PRN (13:39)
[2019-09-21] MEDS ORDERED: Lisinopril 20 MG TAB PO SCH ×2 (13:45→18:15)
[2019-09-21] MEDS ORDERED: Lorazepam 2 MG/ML VIAL SLOW IVP PRN (17:52)
--- NOTE | 2019-09-21 20:42 | CT ---
CT Brain WO Con: 09/21/2019 7:13 PM CLINICAL HISTORY: Drooling with slurred speech. IMAGING TECHNIQUE: Multiple CT images were obtained of the brain without IV contrast. COMPARISON: CT the brain dated September 21, 2019 at 12:16 AM and an MR the brain without contrast dated 2019 FINDINGS: Brain: Hypodensities corresponding to the patient's known right MCA distribution infarct, seen withi n the right temporal lobe, right frontal lobe as well as within the periventricular white matter, adjacent to the caudate head, are similar appearing. No intracranial hemorrhage is demonstrated. No a pparent midline shift is noted. No hydrocephalus is present. Ventricles: Normal. No hydrocephalus. Skull: Intact. Visualized Paranasal sinuses: Clear. Mastoid air cells:Clear. Extracranial soft tissues:Normal. IMPRESSION: Stable CT examination of the brain with stable CT findings of the right MCA distribution infarct. No hemorrhagic conversion demonstrated.
[2019-09-21] MEDS: metFORMIN 500 MG TAB PO SCH (20:46)
[2019-09-21] MEDS ORDERED: Clopidogrel Bisulfate 75 MG TAB PO SCH (21:00)
[2019-09-21] MEDS ORDERED: Atorvastatin Calcium 40 MG TAB PO SCH (21:00)
[2019-09-21] MEDS ORDERED: Metoprolol Tartrate 25 MG TAB PO SCH (21:00)
[2019-09-22] MEDS: HumaLOG 300 UNITS/3 ML VIAL SC PRN ×2 (05:19→11:33)
[2019-09-22] MEDS: Famotidine/PF 20 mg/2ml Vial SLOW IVP SCH (07:17)
[2019-09-22] MEDS: metFORMIN 500 MG TAB PO SCH (08:27)
[2019-09-22] MEDS: Famotidine 20 MG TAB PO SCH (08:27)
[2019-09-22] MEDS: Enoxaparin Sodium 40 MG/0.4 ML SYRINGE SC SCH (08:27)
[2019-09-22] MEDS: Aspirin 325 mg Enteric Coated Tablet PO SCH (08:27)
[2019-09-22] MEDS ORDERED: Amlodipine 10 MG TAB PO SCH (09:00)
[2019-09-22] MEDS ORDERED: Lisinopril 20 MG TAB PO SCH ×2 (09:00→21:00)
[2019-09-22] MEDS: Acetaminophen 325 MG TAB PO PRN (11:33)
[2019-09-22 11:45] VITALS: BP 136/92; TEMP 98.3
--- NOTE | 2019-09-22 13:17 | PDOC.HOSPP ---
- Subjective Encounter Date: 09/22/19 Subjective: NEUROLOGY PROGRESS NOTE Patient is awake, alert and following commands. Episode of aphasia with twitching with high BP. Concern about seizure versus TIA. EEG negative - Objective Vital Signs & Weight: Vital Signs (12 hours) Temp Pulse Resp BP BP Pulse Ox 09/22/19 11:00 98.3 F 71 16 136/92 H 94 L 09/22/19 08:28 183/90 H 09/22/19 08:27 62 09/22/19 08:24 96 09/22/19 07:51 98.4 F 62 16 146/84 H 96 09/22/19 04:31 98.5 F 66 16 134/81 98 Weight Weight 176 lb I&O: 09/21/19 09/22/19 09/23/19 06:59 06:59 06:59 Intake Total 650 Balance 650 Result Diagrams: 09/21/19 04:57 09/21/19 04:57 Additional Labs: Accuchecks 09/22/19 09/22/19 09/21/19 10:47 04:57 20:20 POC Glucose 265 H 291 H 204 H 09/21/19 16:35 POC Glucose 249 H Radiology Reviewed by me: Yes EKG Reviewed by me: Yes Hospitalist ROS - Review of Systems Constitutional: denies: fever, chills, sweats, weakness, malaise, other Eyes: denies: pain, vision change, conjunctivae inflammation, eyelid inflammation, redness, other ENT: denies: ear pain, ear discharge, nose pain, nose discharge, nose congestion , mouth pain, mouth swelling, throat pain, throat swelling, other Respiratory: denies: cough, dry, shortness of breath, hemoptysis, SOB with excertion, pleuritic pain, sputum, wheezing, other Cardiovascular: denies: chest pain, palpitations, orthopnea, paroxysmal noc. dyspnea, edema, light headedness, other Gastrointestinal: denies: nausea, vomiting, abdominal pain, diarrhea, constipation, melena, hematochezia, other Genitourinary: denies: dysuria, frequency, incontinence, hematuria, retention, other Musculoskeletal: denies: neck pain, shoulder pain, arm pain, back pain, hand pain, leg pain, foot pain, other Neurological: reports: weakness. denies: numbness, incoordination, change in speech, confusion, seizures, other - Medication Medications: Active Medications Generic Name Dose Route Start Last Admin Trade Name Freq PRN Reason Stop Dose Admin Acetaminophen 650 mg 09/21/19 02:13 09/22/19 11:33 Tylenol PO 650 mg Q4H PRN Administration Headache/Fever/Mild Pain (1-3) Amlodipine Besylate 10 mg 09/22/19 09:00 09/22/19 08:27 Norvasc PO 10 mg DAILY SALOME Administration Aspirin 325 mg 09/21/19 09:00 09/22/19 08:27 Ecotrin PO 325 mg DAILY SALOME Administration Atorvastatin Calcium 80 mg 09/21/19 21:00 09/21/19 20:45 Lipitor PO 80 mg HS SALOME Administration Clopidogrel Bisulfate 75 mg 09/21/19 21:00 09/21/19 20:46 Plavix PO 75 mg 2100 SALOME Administration Enoxaparin Sodium 40 mg 09/21/19 09:00 09/22/19 08:27 Lovenox SC 40 mg 0900 SALOME Administration Famotidine 20 mg 09/21/19 09:00 09/22/19 08:27 Pepcid PO 20 mg BID SALOME Administration Insulin Human Lispro 0 units 09/21/19 02:11 09/22/19 11:33 Humalog SC 4 unit .MILD SLIDING SCALE PRN Administration Mild Correctional Scale Labetalol HCl 10 mg 09/21/19 18:06 09/21/19 18:30 Normodyne SLOW IVP 10 mg Q4H PRN Administration SBP Greater Than 180 Lisinopril 40 mg 09/22/19 09:00 09/22/19 08:28 Zestril PO 40 mg DAILY SALOME Administration Lorazepam 2 mg 09/21/19 17:52 09/21/19 18:57 Ativan SLOW IVP 2 mg Q15M PRN Administration Seizures Metformin HCl 1,000 mg 09/21/19 21:00 09/22/19 08:27 Glucophage PO 1,000 mg BID SALOME Administration Metoprolol Tartrate 25 mg 09/21/19 21:00 09/21/19 20:46 Lopressor PO 25 mg BID SALOME Administration Sodium Chloride 10 ml 09/21/19 02:08 09/21/19 20:45 Flush - Normal Saline IVF 10 ml PRN PRN Administration Saline Flush Hosp A/P (1) CVA (cerebral vascular accident) Code(s): I63.9 - CEREBRAL INFARCTION, UNSPECIFIED Status: Acute (2) Hypertensive emergency Code(s): I16.1 - HYPERTENSIVE EMERGENCY Status: Acute (3) DMII (diabetes mellitus, type 2) Status: Chronic (4) HLD (hyperlipidemia) Code(s): E78.5 - HYPERLIPIDEMIA, UNSPECIFIED Status: Chronic (5) HTN (hypertension) Code(s): I10 - ESSENTIAL (PRIMARY) HYPERTENSION Status: Chronic (6) Tobacco abuse Code(s): Z72.0 - TOBACCO USE Status: Chronic (7) Chest pain Code(s): R07.9 - CHEST PAIN, UNSPECIFIED Status: Acute Qualifiers: Chest pain type: unspecified Qualified Code(s): R07.9 - Chest pain, unspecified - Plan 44 year old with CVA . He had an episode of aphasia woth twitching. Concern about TIA or Seizure. EEG reviewed which was negative for seizure activity. Neurochecks every 4 hours. Stat HCT if neurological status declines. MRI Brain was consistent with acute stroke on admission Echocardiography did not show any thrombus or PFO. Continue statin for secondary stroke prevention. Telemetry Continue asa and plavix for secondary stroke prevention Continue home medications. Strict control of BP and BG. Continue medical management per primary team. PT/OT/Speech Plan discussed with patient and the nursing staff.
[2019-09-22] MEDS ORDERED: Acetaminophen 500 MG TAB PO PRN (13:24)
--- NOTE | 2019-09-22 15:12 | EEG ---
Referring Physician: FELIX NAGEL EEG # [id number] TEST TYPE: CONTINUOUS EXTENDED VIDEO EEG REPORT: This EEG was performed using 24 channel Interactive [employer] video digital EEG machine with 24 disc electrodes. This was an extended 2 hour 5 minutes of inpatient video EEG recording. Digital analysis of the EEG was done for spike and seizure detection which revealed no abnormalities. BACKGROUND: The posterior background rhythm was not observed. HYPERVENTILATION: Not performed. PHOTIC STIMULATION: No significant response seen with photic stimulation> SLEEP: Drowsiness and sleep are observed. EEG DIAGNOSIS: THIS EEG IS CONSISTENT WITH MODERATE GENERALIZED NONSPECIFIC CEREBRAL DYSFUNCTION. NO ICTAL OR INTERICTAL EPILEPTIFORM ABNORMALITIES SEEN DURING THE RECORDING. Supervisor Poultry Hatchery: KAELA Knife Sharpener: EEG.LACY CASPER
[2019-09-23] MEDS ORDERED: Chlorthalidone 25 MG TAB PO SCH (09:00)
--- NOTE | 2019-09-23 13:23 | EKG ---
Test Reason : Blood Pressure : / mmHG Vent. Rate : 080 BPM Atrial Rate : 080 BPM P-R Int : 156 ms QRS Dur : 076 ms QT Int : 332 ms P-R-T Axes : 030 049 187 degrees QTc Int : 382 ms Normal sinus rhythm Abnormal ECG Confirmed by ANANDA GREGG ([id number]), make up editor INDRA SALEH ([id number]) on 09/23/2019 1:22:51 PM Referred By: Confirmed By:ANNADA GREGG
--- NOTE | 2019-09-25 11:31 | DIS ---
DATE OF ADMISSION: 09/21/2019 DATE OF DISCHARGE: 09/22/2019 Mr. Burroughs is a 44-year-old male with medical history of CVA, hypertension, type 2 diabetes, and coronary artery disease, status post two stents, who presented with left-sided weakness. Of note, the patient recently presented with similar presentation, however, left against medical advice before treatment could be carried out, presented again to the ED and this time CT of the brain showed right MCA distribution infarct. During his inpatient stay, the patient exhibited some twitching of the lips as well as slurred speech that resolved within minutes. 2-hour EEG did not show any seizure-like activity. Neurology was consulted and recommended to continue aspirin and Plavix as well for secondary stroke prevention. The patient was discharged home hemodynamically stable. DISCHARGE MEDICATIONS: New medications: 1. Tylenol 1 g q.6 hours p.r.n. for headaches. 2. Chlorthalidone 12.5 mg daily. 3. Plavix 75 mg daily. Continued medications: 1. Nitroglycerin 0.4 mg q.5 minutes p.r.n. chest pain. 2. Amlodipine 10 mg. 3. Aspirin 325 mg. 4. Atorvastatin 80 mg. 5. Lisinopril 40 mg. 6. Metoprolol 25 mg b.i.d. 7. Glipizide. 8. Metformin. 9. Aspirin. The patient was requested to make sure he has close followup by his primary care physician, considering his newly diagnosed diabetes, stroke, and hypertension. Job ID: [id number]
== END 2019-09-22 17:06 | disposition home or self-care (01) | DRG 65 ==
LOC: ERS 00:07 → 2SE 02:42
PROVIDERS: ADMIT Internal Medicine; ATTEND Internal Medicine
DX: I63.9 Cerebral infarction, unspecified (principal); I16.1 Hypertensive emergency; G81.94 Hemiplegia, unspecified affecting left nondominant side; I10 Essential (primary) hypertension; E78.5 Hyperlipidemia, unspecified; E11.65 Type 2 diabetes mellitus with hyperglycemia; I25.10 Atherosclerotic heart disease of native coronary artery without angina pectoris; E66.9 Obesity, unspecified; F41.9 Anxiety disorder, unspecified; F32.9 Major depressive disorder, single episode, unspecified; Z87.891 Personal history of nicotine dependence; R29.810 Facial weakness; R47.1 Dysarthria and anarthria; R29.700 NIHSS score 0; R40.2362 Coma scale, best motor response, obeys commands, at arrival to emergency department; R40.2142 Coma scale, eyes open, spontaneous, at arrival to emergency department; R40.2252 Coma scale, best verbal response, oriented, at arrival to emergency department; Z86.73 Personal history of transient ischemic attack (TIA), and cerebral infarction without residual deficits; I25.2 Old myocardial infarction; Z95.5 Presence of coronary angioplasty implant and graft; Z68.30 Body mass index [BMI] 30.0-30.9, adult; Z88.5 Allergy status to narcotic agent; Z88.8 Allergy status to other drugs, medicaments and biological substances; Z79.84 Long term (current) use of oral hypoglycemic drugs; Z79.82 Long term (current) use of aspirin; Z79.899 Other long term (current) drug therapy
CPT/HCPCS: 36415; 36416; 70450; 70496; 70498; 80053; 80306; 84484; 85025; 93005; 95712; 95816; 95819; 95957; J1650; J2060; Q9967; S0028

== ENCOUNTER 2020-10-12 11:05 | Inpatient (IN) | payer SELFPAY ==
[2020-10-12 12:32] VITALS: BMI 33.4
[2020-10-12] MEDS ORDERED: Nitroglycerin 0.4 MG TAB (25 Tab Bottle) SL PRN (12:52)
[2020-10-12] MEDS ORDERED: Dextrose 50% Abboject 50 ML SYRINGE SLOW IVP PRN (12:58)
[2020-10-12] MEDS ORDERED: Dextrose 5% in Water 1,000 ML IV PRN (12:58)
[2020-10-12 13:15] LABS: Actual Bicarbonate (HCO3v) 20 mEq/L (22-28); Base Excess -5.5 mEq/L (-2.0 to +3.0); Calcium, Ionized (venous) 1.14 mmol/L (1.16-1.32); Chloride (VBG) 104 mmol/L (98-106); Hemoglobin (Hb) 15.8 g/dL (13.1-17.2); Potassium (VBG) 4.27 mmol/L (3.70-5.30); Sodium 141.3 mmol/L (133-146); pH (venous) 7.34 (7.32-7.43)
[2020-10-12 13:28] LABS: Lactic Acid 1.7 mmol/L (0.5-2.2)
[2020-10-12 13:30] LABS: Hemoglobin A1c 12.5 % (4.0-6.0)
[2020-10-12 13:33] LABS: Magnesium 1.8 mg/dL (1.6-2.6)
[2020-10-12] MEDS ORDERED: Magnesium 2 GM/50 ML 2 GM in Premix Bag 1 BAG IVPB SCH (14:00)
[2020-10-12] MEDS ORDERED: Amlodipine 5 MG TAB PO SCH (14:00)
[2020-10-12] MEDS ORDERED: Communication Order-Pharmacy FS SCH (14:00)
[2020-10-12] MEDS ORDERED: Aspirin 81 mg Enteric Coated Tablet PO SCH (14:00)
[2020-10-12] MEDS ORDERED: Enoxaparin Sodium 80 MG/0.8 ML SYRINGE SC SCH (14:00)
[2020-10-12] MEDS: Sodium Chloride 0.9% 1,000 ML IV SCH (14:10)
[2020-10-12 15:31] LABS: Amphetamine Not Detected (NotDetected); Cocaine Metabolite Screen Not Detected (NotDetected); Medtox Reader # READER 1; Methamphetamine Not Detected (NotDetected); Opiate Screen Not Detected (NotDetected); Phencyclidine (PCP) Not Detected (NotDetected); THC/Cannabinoid Screen Not Detected (NotDetected)
[2020-10-12 15:32] LABS: Barbiturates Screen Not Detected (NotDetected); Benzodiazepine Screen Not Detected (NotDetected); Medtox Control Line Valid? VALID (VALID); Methadone Not Detected (NotDetected); Oxycodone Screen Not Detected (NotDetected); Tricyclic Screen Not Detected (NotDetected)
[2020-10-12] MEDS: HumaLOG 300 UNITS/3 ML VIAL SC PRN ×2 (16:56→23:01)
[2020-10-12] MEDS: traMADol HCl 50 MG TAB PO SCH ×2 (17:42→23:00)
[2020-10-12] MEDS: Rosuvastatin 20 MG TAB PO SCH (20:16)
[2020-10-12] MEDS: Enoxaparin Sodium 80 MG/0.8 ML SYRINGE SC SCH (20:16)
[2020-10-12 20:35] LABS: SARS-CoV-2 PCR by NAA Not Detected (NotDetected)
[2020-10-12] MEDS ORDERED: Lorazepam 1 MG TAB PO SCH (22:45)
[2020-10-12] MEDS: Gabapentin 300 MG CAP PO SCH (22:54)
[2020-10-12] MEDS: hydrALAZINE 20 MG/ML VIAL SLOW IVP PRN (22:54)
[2020-10-13 05:52] LABS: Cardiac Risk 3.8 (Less than 4.5)
[2020-10-13] MEDS: traMADol HCl 50 MG TAB PO SCH ×4 (06:11→23:16)
[2020-10-13] MEDS: Gabapentin 300 MG CAP PO SCH ×3 (06:12→21:12)
[2020-10-13] MEDS: hydrALAZINE 20 MG/ML VIAL SLOW IVP PRN (06:15)
[2020-10-13] MEDS: HumaLOG 300 UNITS/3 ML VIAL SC PRN ×3 (06:28→21:11)
[2020-10-13] MEDS: Sodium Chloride 0.9% 1,000 ML IV SCH (08:12)
[2020-10-13] MEDS: Aspirin 81 mg Enteric Coated Tablet PO SCH (08:12)
[2020-10-13] MEDS: Amlodipine 5 MG TAB PO SCH (08:12)
[2020-10-13] MEDS: Enoxaparin Sodium 80 MG/0.8 ML SYRINGE SC SCH ×2 (08:12→21:11)
[2020-10-13] MEDS ORDERED: Aspirin Chewable 81 MG TAB PO SCH (09:00)
[2020-10-13 11:22] LABS: #Eosinphils 0.2 thou/uL (0.0-0.7); #Lymphocytes 1.8 thou/uL (1.20-3.40); #Monocytes 0.5 thou/uL (0.11-0.59); %Basophils 0.5 % (0.0-1.0); %Eosinophils 3.1 % (0.0-10.0); %Lymphocytes 24.1 % (21.0-51.0); %Monocytes 7.1 % (0.0-10.0); %Neutrophils 65.1 % (42.0-75.0); Hemoglobin 16.1 g/dL (14.0-18.0); Mean Corpuscular Hemoglobin 31.5 pg (27.0-31.0); Mean Platelet Volume 7.9 fL (7.4-10.4); Platelet Count 297 thou/uL (130-400); RBC Distribution Width 12.4 % (11.5-14.5); Red Blood Cell (RBC) Count 5.11 mill/uL (4.70-6.10); White Blood Cell (WBC) Count 7.6 thou/uL (4.8-10.8)
[2020-10-13 11:40] LABS: Anion Gap 14 mmol/L (10-20); BUN (Urea Nitrogen) 10 mg/dL (8.9-20.6); Calc. Creatinine Clearance 118 mL/min (70-130); Calcium 9.1 mg/dL (7.8-10.44); Carbon Dioxide 23 mmol/L (22-29); Chloride 101 mmol/L (98-107); Glucose 312 mg/dL (70-105); Magnesium 1.9 mg/dL (1.6-2.6); Potassium 3.9 mmol/L (3.5-5.1); Sodium 134 mmol/L (136-145)
[2020-10-13] MEDS ORDERED: FLUoxetine HCl 20 MG CAP PO SCH (11:45)
[2020-10-13] MEDS ORDERED: Polyethylene Glycol OPTH DROP 15 ML BOT EA EYE PRN (12:22)
[2020-10-13] MEDS ORDERED: Magnesium Oxide 400 MG TAB PO SCH (12:30)
[2020-10-13] MEDS: Rosuvastatin 20 MG TAB PO SCH (21:11)
[2020-10-13] MEDS ORDERED: Lorazepam 1 MG TAB PO PRN (21:57)
[2020-10-14 05:11] LABS: #Eosinphils 0.3 thou/uL (0.0-0.7); #Lymphocytes 1.9 thou/uL (1.20-3.40); #Monocytes 0.4 thou/uL (0.11-0.59); #Neutrophils 2.4 thou/uL (1.40-6.50); %Basophils 0.7 % (0.0-1.0); %Eosinophils 6.8 % (0.0-10.0); %Lymphocytes 37.2 % (21.0-51.0); %Monocytes 7.5 % (0.0-10.0); %Neutrophils 47.8 % (42.0-75.0); Hemoglobin 13.9 g/dL (14.0-18.0); Mean Corpuscular Hemoglobin 30.2 pg (27.0-31.0); Mean Corpuscular Volume 88.7 fL (78.0-98.0); Mean Platelet Volume 8.1 fL (7.4-10.4); Platelet Count 267 thou/uL (130-400); RBC Distribution Width 12.4 % (11.5-14.5); Red Blood Cell (RBC) Count 4.59 mill/uL (4.70-6.10)
[2020-10-14] MEDS: Sodium Chloride 0.9% 1,000 ML IV SCH (05:21)
[2020-10-14 05:34] LABS: Anion Gap 10 mmol/L (10-20); BUN (Urea Nitrogen) 9 mg/dL (8.9-20.6); Calc. Creatinine Clearance 141 mL/min (70-130); Calcium 8.8 mg/dL (7.8-10.44); Carbon Dioxide 25 mmol/L (22-29); Chloride 104 mmol/L (98-107); Glucose 193 mg/dL (70-105); Potassium 3.6 mmol/L (3.5-5.1); Sodium 135 mmol/L (136-145)
[2020-10-14] MEDS: Gabapentin 300 MG CAP PO SCH ×3 (05:46→20:58)
[2020-10-14] MEDS: traMADol HCl 50 MG TAB PO SCH ×3 (05:47→17:54)
[2020-10-14] MEDS: Amlodipine 5 MG TAB PO SCH (05:48)
[2020-10-14] MEDS: FLUoxetine HCl 20 MG CAP PO SCH ×2 (05:49→20:57)
[2020-10-14] MEDS: Aspirin 81 mg Enteric Coated Tablet PO SCH (05:50)
[2020-10-14] MEDS ORDERED: Sodium Chloride 0.9% 1,000 ML IV SCH ×2 (06:00→09:00)
[2020-10-14] MEDS ORDERED: Lidocaine 1% (PF) 30 ML VIAL ONE (07:24)
[2020-10-14] MEDS ORDERED: Nitroglycerin 100MG/250ML BOT 250 ML ONE (07:25)
[2020-10-14] MEDS ORDERED: Verapamil 5 MG/2 ML VIAL ONE (07:25)
[2020-10-14] MEDS ORDERED: Heparin 10,000 UNITS/ 10 ML VIAL ONE (07:25)
[2020-10-14] MEDS ORDERED: Adenosine 6 MG/2 ML VIAL ONE (08:00)
[2020-10-14] MEDS ORDERED: Fentanyl 100 MCG/2 ML VIAL ONE (08:07)
[2020-10-14] MEDS ORDERED: Midazolam HCl 2 mg/2 ml Vial ONE (08:08)
[2020-10-14] MEDS ORDERED: Clopidogrel Bisulfate 300 MG TAB ONE (08:39)
[2020-10-14] MEDS ORDERED: Iopamidol 370 76% 100 ML VIAL ONE (08:41)
[2020-10-14] MEDS ORDERED: Iopamidol 370 76% 50 ML VIAL FS ONE (08:41)
[2020-10-14] MEDS ORDERED: FLUoxetine HCl 20 MG CAP PO SCH (09:00)
[2020-10-14] MEDS ORDERED: Nitroglycerin 0.4 MG TAB (25 Tab Bottle) SL PRN (09:00)
[2020-10-14] MEDS: Clopidogrel Bisulfate 75 MG TAB PO SCH (10:20)
[2020-10-14] MEDS: Aspirin Chewable 81 MG TAB PO SCH (10:20)
[2020-10-14] MEDS: HumaLOG 300 UNITS/3 ML VIAL SC PRN ×3 (11:54→20:57)
[2020-10-14] MEDS: hydrALAZINE 20 MG/ML VIAL SLOW IVP PRN (18:01)
[2020-10-14] MEDS: Rosuvastatin 20 MG TAB PO SCH (20:57)
[2020-10-15] MEDS: traMADol HCl 50 MG TAB PO SCH ×3 (00:03→10:43)
[2020-10-15 04:35] LABS: #Eosinphils 0.4 thou/uL (0.0-0.7); #Lymphocytes 1.1 thou/uL (1.20-3.40); #Monocytes 0.7 thou/uL (0.11-0.59); #Neutrophils 4.4 thou/uL (1.40-6.50); %Basophils 0.5 % (0.0-1.0); %Eosinophils 5.9 % (0.0-10.0); %Lymphocytes 16.8 % (21.0-51.0); %Monocytes 10.3 % (0.0-10.0); %Neutrophils 66.5 % (42.0-75.0); Hemoglobin 15.2 g/dL (14.0-18.0); Mean Corpuscular HGB CONC 34.9 g/dL (32.0-36.0); Mean Corpuscular Volume 88.8 fL (78.0-98.0); Mean Platelet Volume 8.1 fL (7.4-10.4); Platelet Count 258 thou/uL (130-400); Red Blood Cell (RBC) Count 4.92 mill/uL (4.70-6.10); White Blood Cell (WBC) Count 6.6 thou/uL (4.8-10.8)
[2020-10-15 04:57] LABS: ALT (SGPT) 10 U/L (8-55); AST (SGOT) 17 U/L (5-34); Alkaline Phosphatase 55 U/L (40-110); Anion Gap 12 mmol/L (10-20); BUN (Urea Nitrogen) 11 mg/dL (8.9-20.6); Bilirubin, Total 0.5 mg/dL (0.2-1.2); Calc. Creatinine Clearance 112 mL/min (70-130); Calcium 9.1 mg/dL (7.8-10.44); Carbon Dioxide 26 mmol/L (22-29); Chloride 100 mmol/L (98-107); Globulin 2.7 g/dL (2.4-3.5); Glucose 226 mg/dL (70-105); Protein, Total 6.7 g/dL (6.0-8.3); Sodium 134 mmol/L (136-145)
[2020-10-15] MEDS: Gabapentin 300 MG CAP PO SCH ×2 (05:31→14:16)
[2020-10-15] MEDS: HumaLOG 300 UNITS/3 ML VIAL SC PRN (05:32)
[2020-10-15] MEDS: FLUoxetine HCl 20 MG CAP PO SCH (08:21)
[2020-10-15] MEDS: Clopidogrel Bisulfate 75 MG TAB PO SCH (08:22)
[2020-10-15] MEDS: Aspirin Chewable 81 MG TAB PO SCH (08:22)
[2020-10-15] MEDS: Amlodipine 5 MG TAB PO SCH (08:22)
[2020-10-15 13:26] VITALS: BP 139/91; TEMP 98.3
== END 2020-10-15 14:33 | disposition home or self-care (01) | DRG 249 ==
LOC: 2SW 11:18 → INTOOBSV 11:18 → OBSVTOIN 10-13 12:43
PROVIDERS: ADMIT Internal Medicine; ATTEND Family Medicine
PROC: 02703DZ Dilation of Coronary Artery, One Artery with Intraluminal Device, Percutaneous Approach (ICD-10-PCS; principal; 2020-10-14)
PROC: 4A023N7 Measurement of Cardiac Sampling and Pressure, Left Heart, Percutaneous Approach (ICD-10-PCS; 2020-10-14)
PROC: B2111ZZ Fluoroscopy of Multiple Coronary Arteries using Low Osmolar Contrast (ICD-10-PCS; 2020-10-14)
PROC: B2151ZZ Fluoroscopy of Left Heart using Low Osmolar Contrast (ICD-10-PCS; 2020-10-14)
DX: I25.110 Atherosclerotic heart disease of native coronary artery with unstable angina pectoris (principal); Z20.822 Contact with and (suspected) exposure to COVID-19; E78.5 Hyperlipidemia, unspecified; I10 Essential (primary) hypertension; E66.9 Obesity, unspecified; G89.29 Other chronic pain; M54.9 Dorsalgia, unspecified; E11.65 Type 2 diabetes mellitus with hyperglycemia; F41.9 Anxiety disorder, unspecified; F32.9 Major depressive disorder, single episode, unspecified; R78.0 Finding of alcohol in blood; F17.210 Nicotine dependence, cigarettes, uncomplicated; E78.00 Pure hypercholesterolemia, unspecified; Z68.33 Body mass index [BMI] 33.0-33.9, adult; Z95.5 Presence of coronary angioplasty implant and graft; I25.2 Old myocardial infarction; Z86.73 Personal history of transient ischemic attack (TIA), and cerebral infarction without residual deficits; Z79.899 Other long term (current) drug therapy; Z79.02 Long term (current) use of antithrombotics/antiplatelets; Z79.82 Long term (current) use of aspirin; Z79.84 Long term (current) use of oral hypoglycemic drugs
CPT/HCPCS: 36415; 36416; 80048; 80053; 80061; 80306; 80307; 82010; 82805; 83036; 83605; 83690; 83735; 85025; 85347; 85379; 92928; 93005; 93010; 93458; 93798; 94760; 96365; 96372; 96375; 99152; 99153; C1876; G0378; J0153; J0360; J1644; J1650; J1815; J2001; J2250; J3010; J3475; Q9967; U0003; U0005

== ENCOUNTER 2020-10-18 11:51 | Inpatient (IN) | payer SELFPAY ==
[~2020-10-18 11:51] MED LIST: Iopamidol 370 76% 100 ML VIAL ONE; Iopamidol 370 76% 50 ML VIAL FS ONE
[2020-10-18 12:26] LABS: #Eosinphils 0.1 thou/uL (0.0-0.7); #Lymphocytes 1.2 thou/uL (1.20-3.40); #Monocytes 0.8 thou/uL (0.11-0.59); #Neutrophils 9.4 thou/uL (1.40-6.50); %Basophils 0.2 % (0.0-1.0); %Eosinophils 0.5 % (0.0-10.0); %Lymphocytes 10.7 % (21.0-51.0); %Monocytes 6.7 % (0.0-10.0); %Neutrophils 81.8 % (42.0-75.0); Hemoglobin 16.3 g/dL (14.0-18.0); Mean Corpuscular HGB CONC 33.1 g/dL (32.0-36.0); Mean Corpuscular Hemoglobin 30.2 pg (27.0-31.0); Mean Corpuscular Volume 91.1 fL (78.0-98.0); Mean Platelet Volume 8.2 fL (7.4-10.4); Platelet Count 349 thou/uL (130-400); RBC Distribution Width 12.2 % (11.5-14.5); White Blood Cell (WBC) Count 11.4 thou/uL (4.8-10.8)
[2020-10-18] MEDS ORDERED: Aspirin Chewable 81 MG TAB ONE (12:43)
[2020-10-18] MEDS ORDERED: Lidocaine Viscous Sol 2% 15 ml UD Cup ONE (12:50)
[2020-10-18] MEDS ORDERED: Mag-Al 1200 mg/1200 mg/30 ML UDCUP ONE (12:50)
[2020-10-18] MEDS ORDERED: Nitroglycerin 2% Ointment 1 INCH/1 GM Packet ONE (13:11)
[2020-10-18] MEDS ORDERED: Nitroglycerin 50 MG/250 ML BOT 250 ML ONE (13:16)
[2020-10-18] MEDS ORDERED: Enoxaparin Sodium 80 MG/0.8 ML SYRINGE ONE (13:18)
[2020-10-18] MEDS ORDERED: Nitroglycerin 100MG/250ML BOT 250 ML ONE (13:34)
[2020-10-18] MEDS ORDERED: Heparin 10,000 UNITS/ 10 ML VIAL ONE (13:34)
[2020-10-18] MEDS ORDERED: Adenosine 6 MG/2 ML VIAL ONE ×2 (13:34→14:28)
[2020-10-18] MEDS ORDERED: Verapamil 5 MG/2 ML VIAL ONE (13:34)
[2020-10-18 13:35] LABS: CKMB 66.6 ng/mL (0-6.6)
[2020-10-18] MEDS ORDERED: Lidocaine 1% (PF) 30 ML VIAL ONE (13:36)
[2020-10-18 13:40] LABS: ALT (SGPT) 24 U/L (8-55); AST (SGOT) 93 U/L (5-34); Albumin 4.5 g/dL (3.5-5.0); Alkaline Phosphatase 66 U/L (40-110); Anion Gap 17 mmol/L (10-20); BUN (Urea Nitrogen) 16 mg/dL (8.9-20.6); Bilirubin, Total 0.5 mg/dL (0.2-1.2); Calc. Creatinine Clearance 0 mL/min (70-130); Calcium 9.8 mg/dL (7.8-10.44); Carbon Dioxide 23 mmol/L (22-29); Chloride 99 mmol/L (98-107); Globulin 3.6 g/dL (2.4-3.5); Glucose 257 mg/dL (70-105); Potassium 4.1 mmol/L (3.5-5.1); Protein, Total 8.1 g/dL (6.0-8.3); Sodium 135 mmol/L (136-145)
[2020-10-18] MEDS ORDERED: Midazolam HCl 2 mg/2 ml Vial ONE (13:58)
[2020-10-18] MEDS ORDERED: Fentanyl 100 MCG/2 ML VIAL ONE (13:58)
[2020-10-18] MEDS ORDERED: Enoxaparin Sodium 30 MG/0.3 ML SYRINGE ONE (14:25)
[2020-10-18] MEDS ORDERED: Aggrastat 12.5 MG/250 ML 250 ML ONE (14:35)
[2020-10-18] MEDS ORDERED: Milk Of Magnesia 30 ML UDCUP PO PRN (15:01)
[2020-10-18] MEDS ORDERED: Sodium Chloride 0.9% 1,000 ML IV SCH (15:15)
[2020-10-18] MEDS ORDERED: Clopidogrel Bisulfate 300 MG TAB PO SCH (15:15)
[2020-10-18] MEDS ORDERED: Clopidogrel Bisulfate 300 MG TAB ONE (15:19)
[2020-10-18] MEDS: Aggrastat 12.5 MG/250 ML 12.5 MG in Premix Bag 1 BAG IVPB SCH (22:00)
[2020-10-18 22:28] VITALS: BMI 30.7
[2020-10-18] MEDS ORDERED: HumaLOG 300 UNITS/3 ML VIAL SC PRN (22:42)
[2020-10-18] MEDS ORDERED: Dextrose 50% Abboject 50 ML SYRINGE SLOW IVP PRN (22:42)
[2020-10-18] MEDS ORDERED: Dextrose 5% in Water 1,000 ML IV PRN (22:42)
[2020-10-18] MEDS ORDERED: Gabapentin 300 MG CAP PO SCH (23:00)
[2020-10-18] MEDS ORDERED: FLUoxetine HCl 20 MG CAP PO SCH (23:00)
[2020-10-18] MEDS: Atorvastatin Calcium 40 MG TAB PO SCH (23:05)
[2020-10-18] MEDS: HumaLOG 300 UNITS/3 ML VIAL SC PRN (23:07)
[2020-10-19] MEDS: Gabapentin 300 MG CAP PO SCH ×3 (05:50→21:20)
[2020-10-19] MEDS: Aggrastat 12.5 MG/250 ML 12.5 MG in Premix Bag 1 BAG IVPB SCH (05:54)
[2020-10-19 06:21] LABS: #Eosinphils 0.1 thou/uL (0.0-0.7); #Lymphocytes 1.7 thou/uL (1.20-3.40); #Neutrophils 5.1 thou/uL (1.40-6.50); %Basophils 0.1 % (0.0-1.0); %Eosinophils 0.7 % (0.0-10.0); %Lymphocytes 21.4 % (21.0-51.0); %Monocytes 12.6 % (0.0-10.0); %Neutrophils 65.2 % (42.0-75.0); Hemoglobin 14.1 g/dL (14.0-18.0); Mean Corpuscular Hemoglobin 30.6 pg (27.0-31.0); Mean Corpuscular Volume 90.1 fL (78.0-98.0); Platelet Count 292 thou/uL (130-400); RBC Distribution Width 12.1 % (11.5-14.5); White Blood Cell (WBC) Count 7.9 thou/uL (4.8-10.8)
[2020-10-19 06:40] LABS: ALT (SGPT) 27 U/L (8-55); AST (SGOT) 107 U/L (5-34); Albumin 3.7 g/dL (3.5-5.0); Alkaline Phosphatase 53 U/L (40-110); Anion Gap 13 mmol/L (10-20); BUN (Urea Nitrogen) 11 mg/dL (8.9-20.6); Bilirubin, Total 0.5 mg/dL (0.2-1.2); Calc. Creatinine Clearance 116 mL/min (70-130); Calcium 8.6 mg/dL (7.8-10.44); Carbon Dioxide 22 mmol/L (22-29); Chloride 105 mmol/L (98-107); Globulin 2.7 g/dL (2.4-3.5); Glucose 157 mg/dL (70-105); Potassium 3.9 mmol/L (3.5-5.1); Protein, Total 6.4 g/dL (6.0-8.3); Sodium 136 mmol/L (136-145)
[2020-10-19] MEDS ORDERED: FLUoxetine HCl 20 MG CAP PO SCH (09:00)
[2020-10-19] MEDS: Clopidogrel Bisulfate 75 MG TAB PO SCH (09:21)
[2020-10-19] MEDS: HumaLOG 300 UNITS/3 ML VIAL SC PRN (18:35)
[2020-10-19] MEDS: Atorvastatin Calcium 40 MG TAB PO SCH (20:31)
[2020-10-20] MEDS: HumaLOG 300 UNITS/3 ML VIAL SC PRN ×3 (05:23→18:00)
[2020-10-20] MEDS: Gabapentin 300 MG CAP PO SCH ×3 (05:27→21:39)
[2020-10-20] MEDS: Clopidogrel Bisulfate 75 MG TAB PO SCH (08:21)
[2020-10-20] MEDS: Aspirin 81 mg Enteric Coated Tablet PO SCH (08:55)
[2020-10-20] MEDS: Losartan 25 MG TAB PO SCH (08:55)
[2020-10-20] MEDS ORDERED: Bupropion 150 MG XL TAB PO SCH ×2 (10:45→19:00)
[2020-10-20] MEDS: Atorvastatin Calcium 40 MG TAB PO SCH (21:40)
[2020-10-21] MEDS: Gabapentin 300 MG CAP PO SCH (06:28)
[2020-10-21] MEDS: HumaLOG 300 UNITS/3 ML VIAL SC PRN ×2 (06:29→12:25)
[2020-10-21] MEDS: Losartan 25 MG TAB PO SCH (08:28)
[2020-10-21] MEDS: Aspirin 81 mg Enteric Coated Tablet PO SCH (08:28)
[2020-10-21] MEDS ORDERED: Prasugrel 10 MG TAB PO SCH (09:00)
[2020-10-21] MEDS ORDERED: Bupropion 150 MG XL TAB PO SCH (09:00)
[2020-10-21 12:24] VITALS: BP 146/97; TEMP 98.1
== END 2020-10-21 15:01 | disposition home or self-care (01) | DRG 246 ==
LOC: ERS 11:51 → CCL 13:40 → CCU 16:00 → 2NO 10-19 15:47
PROVIDERS: ADMIT Internal Medicine Cardiovascular Disease; ATTEND Internal Medicine Cardiovascular Disease
PROC: 027034Z Dilation of Coronary Artery, One Artery with Drug-eluting Intraluminal Device, Percutaneous Approach (ICD-10-PCS; principal; 2020-10-18)
PROC: B2111ZZ Fluoroscopy of Multiple Coronary Arteries using Low Osmolar Contrast (ICD-10-PCS; 2020-10-18)
DX: T82.867A Thrombosis due to cardiac prosthetic devices, implants and grafts, initial encounter (principal); I21.4 Non-ST elevation (NSTEMI) myocardial infarction; E87.1 Hypo-osmolality and hyponatremia; I10 Essential (primary) hypertension; I25.10 Atherosclerotic heart disease of native coronary artery without angina pectoris; F41.9 Anxiety disorder, unspecified; F32.9 Major depressive disorder, single episode, unspecified; F17.220 Nicotine dependence, chewing tobacco, uncomplicated; Y84.8 Other medical procedures as the cause of abnormal reaction of the patient, or of later complication, without mention of misadventure at the time of the procedure; I80.8 Phlebitis and thrombophlebitis of other sites; E11.65 Type 2 diabetes mellitus with hyperglycemia; Z95.5 Presence of coronary angioplasty implant and graft; Z86.73 Personal history of transient ischemic attack (TIA), and cerebral infarction without residual deficits; Z79.01 Long term (current) use of anticoagulants; Z79.84 Long term (current) use of oral hypoglycemic drugs; Z79.82 Long term (current) use of aspirin; Z79.899 Other long term (current) drug therapy; Z88.5 Allergy status to narcotic agent; Z88.8 Allergy status to other drugs, medicaments and biological substances
CPT/HCPCS: 36415; 36416; 71045; 80053; 82553; 84484; 85025; 92928; 93005; 93010; 93454; 93798; 96372; 96374; 99152; 99153; C1769; C9600; J0153; J1644; J1650; J1815; J2001; J2250; J3010; J3246; J3490; Q9967

== ENCOUNTER 2021-01-26 19:27 | Inpatient (IN) | payer SELFPAY ==
[2021-01-26] MEDS ORDERED: Nitroglycerin 2% Ointment 1 INCH/1 GM Packet ONE (19:46)
[2021-01-26 20:08] LABS: Bilirubin Negative (Negative); Blood, Urine Negative (Negative); Clarity Clear (Clear); Glucose, Urine (Dipstick) Greater than 1000 mg/dL (Negative); Ketone, Urine Negative (Negative); Leukocyte Negative Leu/uL (Negative); Nitrite Negative (Negative); Protein, Urine (Dipstick) Negative (Neg-Trace); Specific Gravity, Urine 1.015 (1.002-1.036); Urobilinogen Normal mg/dL (Less than 2)
[2021-01-26 20:17] LABS: Amphetamine Not Detected (NotDetected); Barbiturates Screen Not Detected (NotDetected); Benzodiazepine Screen Not Detected (NotDetected); Cocaine Metabolite Screen Not Detected (NotDetected); Methadone Not Detected (NotDetected); Methamphetamine Not Detected (NotDetected); Opiate Screen Not Detected (NotDetected); Oxycodone Screen Not Detected (NotDetected); Phencyclidine (PCP) Not Detected (NotDetected); THC/Cannabinoid Screen Not Detected (NotDetected); Tricyclic Screen Not Detected (NotDetected)
[2021-01-26 20:26] LABS: #Lymphocytes 1.8 thou/uL (1.20-3.40); #Monocytes 0.5 thou/uL (0.11-0.59); %Basophils 0.3 % (0.0-1.0); %Eosinophils 0.3 % (0.0-10.0); %Lymphocytes 19.3 % (21.0-51.0); %Monocytes 5.3 % (0.0-10.0); %Neutrophils 74.9 % (42.0-75.0); Mean Corpuscular HGB CONC 35.2 g/dL (32.0-36.0); Mean Corpuscular Hemoglobin 30.6 pg (27.0-31.0); Mean Corpuscular Volume 86.8 fL (78.0-98.0); Mean Platelet Volume 8.4 fL (7.4-10.4); Platelet Count 257 thou/uL (130-400); RBC Distribution Width 12.1 % (11.5-14.5); Red Blood Cell (RBC) Count 5.22 mill/uL (4.70-6.10); White Blood Cell (WBC) Count 9.3 thou/uL (4.8-10.8)
[2021-01-26 20:50] LABS: ALT (SGPT) 10 U/L (8-55); AST (SGOT) 12 U/L (5-34); Albumin 4.4 g/dL (3.5-5.0); Alkaline Phosphatase 61 U/L (40-110); Anion Gap 16 mmol/L (10-20); BUN (Urea Nitrogen) 13 mg/dL (8.9-20.6); Bilirubin, Total 0.4 mg/dL (0.2-1.2); Calc. Creatinine Clearance 0 mL/min (70-130); Calcium 9.4 mg/dL (7.8-10.44); Carbon Dioxide 21 mmol/L (22-29); Chloride 101 mmol/L (98-107); Globulin 2.9 g/dL (2.4-3.5); Glucose 312 mg/dL (70-105); Lipase 45 U/L (8-78); Potassium 3.7 mmol/L (3.5-5.1); Protein, Total 7.3 g/dL (6.0-8.3); Sodium 134 mmol/L (136-145)
[2021-01-26 20:51] LABS: Acetaminophen Less than 6.0 mcg/mL (10.0-30.0); Alcohol 110 mg/dL (Less than 10); CK (CPK) 66 U/L (30-200); Salicylate Less than 8.0 mg/dL (15.0-30.0)
[2021-01-26] MEDS ORDERED: Ketorolac Tromethamine 30 MG/ML VIAL ONE (21:50)
[2021-01-26] MEDS ORDERED: Ondansetron ODT 4 MG TAB PO PRN (23:15)
[2021-01-26] MEDS ORDERED: Calcium Carbonate 500 MG ChewTAB PO PRN (23:15)
[2021-01-26] MEDS ORDERED: Dextrose 5% in Water 1,000 ML IV PRN (23:45)
[2021-01-26] MEDS ORDERED: Dextrose 50% Abboject 50 ML SYRINGE SLOW IVP PRN (23:45)
[2021-01-26 23:55] LABS: Troponin I 0.034 ng/mL (< 0.028)
[2021-01-27] MEDS ORDERED: Metoprolol Tartrate 25 MG TAB ONE (01:01)
[2021-01-27] MEDS ORDERED: Acetaminophen 325 MG TAB PO PRN (01:07)
[2021-01-27] MEDS ORDERED: Gabapentin 100 MG CAP PO SCH (01:15)
[2021-01-27] MEDS ORDERED: Acetaminophen 325 MG TAB ONE (01:51)
[2021-01-27 02:48] LABS: Troponin I 0.041 ng/mL (< 0.028)
[2021-01-27 03:01] LABS: Hemoglobin A1c 9.9 % (4.0-6.0)
[2021-01-27 03:06] LABS: Anion Gap 12 mmol/L (10-20); BUN (Urea Nitrogen) 9 mg/dL (8.9-20.6); Calc. Creatinine Clearance 0 mL/min (70-130); Calcium 8.8 mg/dL (7.8-10.44); Carbon Dioxide 22 mmol/L (22-29); Cardiac Risk 4.6 (Less than 4.5); Chloride 105 mmol/L (98-107); Cholesterol 190 mg/dl (< 200 Desired); Glucose 226 mg/dL (70-105); HDL Cholesterol 41 mg/dL (>60 Neg Risk); LDL Cholesterol, Calculated 117 mg/dL; Potassium 3.7 mmol/L (3.5-5.1); Sodium 135 mmol/L (136-145); Triglycerides 162 mg/dL (Less than 150)
[2021-01-27] MEDS: Nicotine 14 MG PATCH TD SCH (03:18)
[2021-01-27 04:28] LABS: SARS-CoV-2 NAA Rapid Test Not Detected (NotDetected)
[2021-01-27] MEDS ORDERED: hydrALAZINE 20 MG/ML VIAL SLOW IVP SCH (06:15)
[2021-01-27] MEDS ORDERED: hydrALAZINE 20 MG/ML VIAL ONE ×3 (06:31→09:59)
[2021-01-27] MEDS ORDERED: Ketoconazole 2% Cream 15 gm Tube TOP SCH (09:00)
[2021-01-27] MEDS: hydrALAZINE 20 MG/ML VIAL SLOW IVP PRN ×2 (09:47→21:22)
[2021-01-27] MEDS: Gabapentin 300 MG CAP PO SCH ×3 (10:22→21:09)
[2021-01-27] MEDS: metFORMIN 500 MG TAB PO SCH ×2 (10:25→16:42)
[2021-01-27] MEDS: Aspirin 81 mg Enteric Coated Tablet PO SCH (10:25)
[2021-01-27] MEDS: glipiZIDE 5 MG TAB PO SCH ×2 (10:29→16:42)
[2021-01-27] MEDS ORDERED: Aspirin 81 mg Enteric Coated Tablet ONE (10:30)
[2021-01-27 11:31] VITALS: BMI 32.9
[2021-01-27] MEDS ORDERED: ALPRAZolam 1 MG TAB PO SCH (12:15)
[2021-01-27] MEDS ORDERED: diphenhydrAMINE 50 MG/ML VIAL IVP SCH (16:00)
[2021-01-27] MEDS: Enoxaparin Sodium 40 MG/0.4 ML SYRINGE SC SCH (16:20)
[2021-01-27] MEDS: Ketoconazole 2% Cream 15 gm Tube TOP SCH ×2 (16:21→21:37)
[2021-01-27] MEDS: Prasugrel 10 MG TAB PO SCH (16:22)
[2021-01-27] MEDS: HumaLOG 300 UNITS/3 ML VIAL SC PRN (16:42)
[2021-01-27] MEDS ORDERED: Prasugrel 10 MG TAB PO SCH (18:30)
[2021-01-27] MEDS: Rosuvastatin 20 MG TAB PO SCH (21:09)
[2021-01-27 23:29] LABS: Troponin I 0.028 ng/mL (< 0.028)
[2021-01-28] MEDS: Nicotine 14 MG PATCH TD SCH (02:25)
[2021-01-28] MEDS: Gabapentin 300 MG CAP PO SCH ×3 (06:03→20:28)
[2021-01-28 06:17] LABS: Anion Gap 12 mmol/L (10-20); BUN (Urea Nitrogen) 15 mg/dL (8.9-20.6); Calc. Creatinine Clearance 93 mL/min (70-130); Calcium 9.4 mg/dL (7.8-10.44); Carbon Dioxide 26 mmol/L (22-29); Chloride 101 mmol/L (98-107); Glucose 240 mg/dL (70-105); Potassium 4.2 mmol/L (3.5-5.1); Sodium 135 mmol/L (136-145)
[2021-01-28] MEDS: metFORMIN 500 MG TAB PO SCH ×2 (08:07→17:12)
[2021-01-28] MEDS: glipiZIDE 5 MG TAB PO SCH (08:07)
[2021-01-28] MEDS: Enoxaparin Sodium 40 MG/0.4 ML SYRINGE SC SCH (08:08)
[2021-01-28] MEDS: Aspirin 81 mg Enteric Coated Tablet PO SCH (08:08)
[2021-01-28] MEDS: Ketoconazole 2% Cream 15 gm Tube TOP SCH (08:09)
[2021-01-28] MEDS ORDERED: Losartan 25 MG TAB PO SCH (09:00)
[2021-01-28] MEDS ORDERED: glipiZIDE 5 MG TAB PO SCH ×2 (10:15→21:00)
[2021-01-28] MEDS ORDERED: Bupropion 150 MG XL TAB PO SCH (11:00)
[2021-01-28] MEDS: Prasugrel 10 MG TAB PO SCH (11:21)
[2021-01-28] MEDS: HumaLOG 300 UNITS/3 ML VIAL SC PRN (12:02)
[2021-01-28 14:12] LABS: Syphilis Antibody Nonreactive (Nonreactive); Syphilis Antibody Index 0.07 S/CO (<1.00 Non-Reactive)
[2021-01-28 14:15] LABS: HIV (1/2) Antibody/Antigen Non-Reactive (NonReactive); HIV 1/2 INDEX 0.16 S/CO (<1.00)
[2021-01-28 14:18] LABS: Vitamin B12 250 pg/mL (211-911)
[2021-01-28] MEDS: hydrALAZINE 20 MG/ML VIAL SLOW IVP PRN (15:59)
[2021-01-28 16:33] VITALS: BP 120/79
[2021-01-28 18:19] VITALS: TEMP 98.4
[2021-01-28] MEDS: Rosuvastatin 20 MG TAB PO SCH (20:28)
[2021-01-28] MEDS ORDERED: Amlodipine 5 MG TAB PO SCH (21:00)
[2021-01-29] MEDS ORDERED: glipiZIDE 10 MG TAB PO SCH (07:30)
[2021-01-29] MEDS ORDERED: Bupropion 150 MG XL TAB PO SCH (09:00)
== END 2021-01-28 20:45 | disposition home or self-care (01) | DRG 69 ==
LOC: ERS 19:27 → ERHOLD 23:05 → 2SE 01-27 11:19 → OBSVTOIN 01-28 10:03
PROVIDERS: ADMIT Family Medicine; ATTEND Family Medicine
DX: G45.9 Transient cerebral ischemic attack, unspecified (principal); I16.1 Hypertensive emergency; N17.9 Acute kidney failure, unspecified; E11.9 Type 2 diabetes mellitus without complications; F41.9 Anxiety disorder, unspecified; F32.9 Major depressive disorder, single episode, unspecified; E78.5 Hyperlipidemia, unspecified; I25.10 Atherosclerotic heart disease of native coronary artery without angina pectoris; F17.229 Nicotine dependence, chewing tobacco, with unspecified nicotine-induced disorders; G89.29 Other chronic pain; M54.9 Dorsalgia, unspecified; I16.0 Hypertensive urgency; B35.6 Tinea cruris; Z66 Do not resuscitate; E78.00 Pure hypercholesterolemia, unspecified; E66.9 Obesity, unspecified; Z68.32 Body mass index [BMI] 32.0-32.9, adult; Z86.73 Personal history of transient ischemic attack (TIA), and cerebral infarction without residual deficits; I25.2 Old myocardial infarction; Z95.5 Presence of coronary angioplasty implant and graft; Z88.5 Allergy status to narcotic agent; Z88.8 Allergy status to other drugs, medicaments and biological substances; Z79.82 Long term (current) use of aspirin; Z79.899 Other long term (current) drug therapy
CPT/HCPCS: 36415; 36416; 70450; 70553; 71045; 80048; 80053; 80061; 80306; 80307; 81003; 82550; 82607; 83036; 83690; 84484; 85025; 85379; 86780; 87389; 93005; 93010; 93306; 96372; 96374; 96375; 96376; G0378; J0360; J1200; J1650; J1815; J1885; U0002